=== PATIENT | female | born 1935 | race Caucasian/White ===

== ENCOUNTER → 2017-01-09 | Outpatient (CLI) | payer MEDICARE, BC | LOC: MW.CHIM 08:00 | PROVIDERS: ATTEND Internal Medicine | DX: E11.9 Type 2 diabetes mellitus without complications (principal); I10 Essential (primary) hypertension; E03.9 Hypothyroidism, unspecified; K21.9 Gastro-esophageal reflux disease without esophagitis | CPT/HCPCS: 99215 ==

== ENCOUNTER → 2017-02-25 | Outpatient (CLI) | payer MEDICARE, BC | LOC: MW.CHIM 08:49 | PROVIDERS: ATTEND Internal Medicine | DX: M10.9 Gout, unspecified (principal) | CPT/HCPCS: 36415; 84550 ==

== ENCOUNTER → 2017-02-26 | Outpatient (CLI) | payer MEDICARE, BC | LOC: MW.CHIM 08:00 | PROVIDERS: ATTEND Internal Medicine | DX: M10.9 Gout, unspecified (principal) | CPT/HCPCS: G0463 ==

== ENCOUNTER 2020-11-19 11:03 | Emergency (ER) | payer MEDICARE, BC ==
--- NOTE | 2020-11-19 11:37 | EDM.PDOC ---
ED HPI GENERAL MEDICAL PROBLEM - General Chief Complaint: Lower Extremity Injury/Pain Stated Complaint: RT LEG PAIN Time Seen by Provider: 11/19/20 11:04 Source of Information: Reports: Patient History Limitations: Reports: No Limitations - History of Present Illness INITIAL COMMENTS - FREE TEXT/NARRATIVE: HISTORY AND PHYSICAL: History of present illness: Patient is an 84-year-old female who presents emergency room today with concern of right posterior thigh pain that has been ongoing for 2 weeks. Patient states that some days are better than others and states that she has a throbbing sensation in the back of her posterior right thigh. Patient states that it is similar to a "charley horse "sensation and states that it is worse at night than during the day. Patient states that she came to the emergency room today for evaluation because family members were concerned that she was ignoring a blood clot. Patient states that she has not had any swelling, redness, or can feel or notice anything of the extremity. Patient denies any trauma, injury, or falls. Patient denies any other symptoms or concerns. Patient denies fever, chills, chest pain, shortness of breath, or cough. Denies headache, neck stiff ness, change in vision, syncope, or near syncope. Denies nausea, vomiting, abdominal pain, diarrhea, constipation, or dysuria. Has not noted any blood in urine or stool. Patient has been eating and drinking appropriately. Review of systems: As per history of present illness and below otherwise all systems reviewed and negative. Past medical history: As per history of present illness and as reviewed below otherwise noncontributory. Surgical history: As per history of present illness and as reviewed below otherwise noncontributory. Social history: See social history for further information Family history: As per history of present illness and as reviewed below otherwise noncontributory. Physical exam: General: Patient is alert, oriented, and in no acute distress. Patient sitting comfortably on exam table. Vitals stable and reviewed by me. HEENT: Atraumatic, normocephalic, pupils equal and reactive bilaterally, negative for conjunctival pallor or scleral icterus, mucous membranes moist, TMs normal bilaterally, throat clear, neck supple, nontender, trachea midline. No drooling or trismus noted. No meningeal signs. No hot potato voice noted. Lungs: Clear to auscultation, breath sounds equal bilaterally, chest nontender. Heart: S1S2, regular rate and rhythm without overt murmur Abdomen: Soft, nondistended, nontender. Negative for masses or hepatosplenomegaly. Negative for costovertebral tenderness. Pelvis: Stable nontender. Genitourinary: Deferred. Rectal: Deferred. Skin: Intact, warm, dry. No lesions or rashes noted. Extremities: Patient was able to ambulate into the ED today without difficulty. No obvious deformity of bilateral lower extremities. No erythema, warmth, rashes, masses, or lesions noted of bilateral lower extremities. Dorsalis pedis and posterior tibial pulses are grossly intact bilaterally with capillary refill less than 2 seconds. Patient has full range of motion of bilateral lower extremities without pain or difficulty. Patient does have some generalized mild discomfort to palpation of the posterior thigh / hamstring area and posterior knee without deformity, erythema, warmth, rashes, lesions, or masses of this area. Otherwise, atraumatic, negative for cords or calf pain. Neurovascular unremarkable. Neuro: Awake, alert, oriented. Cranial nerves II through XII unremarkable. Cerebellum unremarkable. Motor and sensory unremarkable throughout. Exam nonfocal. Notes: Signs and symptoms that would prompt return to the ED thoroughly discussed with patient. Discussed the importance for follow up with a primary care provider. Voices understanding and is agreeable to plan of care. Denies any further questions or concerns at this time. Diagnostics: Femur XR Rt, Bilateral venous doppler US Therapeutics: None Prescription: None Impression: Right leg pain, unspecified Bakers cyst, right lower extremity Plan: 1. Tylenol as directed for pain management or discomfort. 2. Follow up with the primary care provider as discussed. Return to the ED as needed and as discussed. Definitive disposition and diagnosis as appropriate pending reevaluation and review of above. Right thigh Pain Score (Numeric/FACES): 7 - Related Data Allergies Allergy/AdvReac Type Severity Reaction Status Date / Time Penicillins Allergy throat Verified 11/19/20 11:19 swellingh Social & Family History - Family History Family Medical History: No Pertinent Family History - Tobacco Use Tobacco Use Status *Q: Never Tobacco User - Caffeine Use Caffeine Use: Reports: None Review of Systems - Review of Systems Review Of Systems: Comprehensive ROS is negative, except as noted in HPI. ED EXAM, GENERAL - Physical Exam Exam: See Below (see dictation) Course - Vital Signs Last Recorded V/S: Last Vital Signs Temp 97.1 F 11/19/20 13:03 Pulse 70 11/19/20 13:03 Resp 18 11/19/20 13:03 BP 169/82 H 11/19/20 13:03 Pulse Ox 94 L 11/19/20 13:03 Departure - Departure Time of Disposition: 12:49 Disposition: Home, Self-Care 01 Clinical Impression: Right leg pain Montero's cyst of knee Qualifiers: Laterality: right Qualified Code(s): M71.21 - Synovial cyst of popliteal space [Montero], right knee - Discharge Information Instructions: Ankle Sprain, [id number]-[id number], Tibial Fracture, Adult, [id number] Referrals: Mally Wilson MD [Primary Care Provider] - Forms: ED Department Discharge Additional Instructions: The following information is given to patients seen in the emergency department who are being discharged to home. This information is to outline your options for follow-up care. We provide all patients seen in our emergency department with a follow-up referral. The need for follow-up, as well as the timing and circumstances, are variable depending upon the specifics of your emergency department visit. If you don't have a primary care physician on staff, we will provide you with a referral. We always advise you to contact your personal physician following an emergency department visit to inform them of the circumstance of the visit and for follow-up with them and/or the need for any referrals to a consulting specialist. The emergency department will also refer you to a specialist when appropriate. This referral assures that you have the opportunity for follow-up care with a specialist. All of these measure are taken in an effort to provide you with optimal care, which includes your follow-up. Under all circumstances we always encourage you to contact your private physician who remains a resource for coordinating your care. When calling for follow-up care, please make the office aware that this follow-up is from your recent emergency room visit. If for any reason you are refused follow-up, please contact the [facility] Emergency Department at and asked to speak to the emergency department charge nurse. [facility] [address] [place] [id number] [facility] [address] [place] [address] 1. Tylenol as directed for pain management or discomfort. 2. Follow up with the primary care provider as discussed. Return to the ED as needed and as discussed. Sepsis Event Note (ED) - Evaluation Sepsis Screening Result: No Definite Risk - Focused Exam Vital Signs: Vital Signs Temp Pulse Resp BP Pulse Ox 11/19/20 13:03 97.1 F 70 18 169/82 H 94 L 11/19/20 11:20 98.0 F 69 18 174/69 H 97
--- NOTE | 2020-11-19 12:14 | CR ---
HISTORY: Posterior thigh pain. COMPARISON: None available. FINDINGS: AP and lateral views of the right femur were obtained. There is no sign of fracture, dislocation, or joint effusion. The soft tissues are normal in appearance without sign of radio-opaque foreign body. There is mild primary osteoarthritis of the hip, with mild joint space narrowing and mild marginal osteophyte formation. There is no sign of fracture or dislocation. There is tricompartmental primary osteoarthritis of the knee, with moderate involvement of the medial joint and patellofemoral joint compartments, and mild involvement of the lateral joint compartment. Medially, there is moderate joint space narrowing and mild marginal osteophyte formation. Laterally, the joint space is preserved, but there is moderate marginal osteophyte formation and mild sclerosis of the articular surfaces. The patellofemoral joint compartment appears to be mildly narrowed and there is moderate superior patellar marginal osteophyte formation. There is no sign of a suprapatellar knee joint effusion. IMPRESSION: No sign of acute osseous injury. Tricompartmental primary osteoarthritis of the knee with moderate involvement medially and of the patellofemoral joint compartment. Mild involvement laterally. Mild primary osteoarthritis of the right hip. Dictated by Can Ha MD @ Nov 19 2020 12:10PM Signed by Dr. Can Ha @ Nov 19 2020 12:13PM
--- NOTE | 2020-11-19 12:40 | US ---
INDICATION: Right posterior thigh pain for several weeks. COMPARISON: None available FINDINGS: Ultrasound of the venous drainage of both lower extremities shows no evidence of deep venous thrombosis. There is normal antegrade flow from the posterior tibial and popliteal veins superiorly through the common femoral vein in both legs. There is normal augmentation and compressibility of these veins. There is a small Montero cyst in the right popliteal fossa measuring 2.0 x 1.1 x 3.9 centimeters. IMPRESSION: No evidence of deep venous thrombosis on ultrasound examination of both lower extremities. Small right Montero`s cyst. Dictated by Can Ha MD @ Nov 19 2020 12:29PM Signed by Dr. Can Ha @ Nov 19 2020 12:37PM
== END 2020-11-19 13:04 | disposition home or self-care (01) ==
LOC: MW.ED 11:03
DX: M71.21 Synovial cyst of popliteal space [Baker], right knee (principal); Z88.0 Allergy status to penicillin
CPT/HCPCS: 73552-26-LT; 73552-RT; 93970; 93970-26; 99283; 99284-25

== ENCOUNTER 2021-12-24 16:03 | Emergency (ER) | payer MEDICARE, BC ==
[2021-12-24 17:31] LABS: CARBON DIOXIDE,CO2 23.4 mmol/L (21.0-32.0); ESTIMATED GFR 30.6 ml/min; POTASSIUM,K 3.3 mmol/L (3.5-5.1)
[2021-12-24] MEDS ORDERED: Potassium Chloride 20 MEQ Tab.ER PO ONE (17:45)
== END 2021-12-24 19:01 | disposition home or self-care (01) ==
LOC: MW.ED 16:03
DX: I95.1 Orthostatic hypotension (principal); E87.6 Hypokalemia; I11.0 Hypertensive heart disease with heart failure; I50.9 Heart failure, unspecified; Z88.0 Allergy status to penicillin
CPT/HCPCS: 36415; 80053; 85025; 93005; 99284; A9270; 93010

== ENCOUNTER 2022-07-16 09:00 | Emergency (ER) | payer MEDICARE, BC | END 2022-07-16 16:19 | disposition home or self-care (01) | LOC: MW.ED 09:00 | DX: I63.9 Cerebral infarction, unspecified (principal) | CPT/HCPCS: 70450; 99285 ==

== ENCOUNTER 2022-09-30 13:01 | Emergency (ER) | payer MEDICARE, BC ==
[2022-09-30] MEDS ORDERED: Sodium Chloride 0.9% 250 ML IV SCH (14:15)
[2022-09-30 14:56] LABS: CARBON DIOXIDE,CO2 23.3 mmol/L (21.0-32.0); POTASSIUM,K 3.4 mmol/L (3.5-5.1)
== END 2022-09-30 15:44 | disposition home or self-care (01) ==
LOC: MW.ED 13:01
DX: E86.1 Hypovolemia (principal); Z88.0 Allergy status to penicillin
CPT/HCPCS: 36415; 80053; 85025; 96360; 99284; J7050

== ENCOUNTER 2022-10-05 02:12 | Observation (INO) | payer MEDICARE, BC ==
[2022-10-05 03:01] LABS: BLOOD UREA NITROGEN,BUN 25 mg/dL (7.0-18.0); CARBON DIOXIDE,CO2 25.9 mmol/L (21.0-32.0); CHLORIDE,CL 99 mmol/L (98-107); GLUCOSE RANDOM 137 mg/dL (74-106); POTASSIUM,K 3.5 mmol/L (3.5-5.1); SODIUM,NA 136 mmol/L (136-145)
[2022-10-05 03:02] LABS: ESTIMATED GFR 44 mL/min (>60)
[2022-10-05 03:09] LABS: CORONAVIRUS COVID-19 NAA NEGATIVE (NEGATIVE); INFLUENZA A NAA NEGATIVE (NEGATIVE); INFLUENZA B NAA NEGATIVE (NEGATIVE)
[2022-10-05] MEDS ORDERED: Glucagon,Human Recombinant 1 MG Vial IM PRN (06:01)
[2022-10-05] MEDS ORDERED: 50% Dextrose in Water 50 ML Syringe IVPUSH PRN (06:01)
[2022-10-05] MEDS: Insulin Aspart 100 Units/ML 3 ML Pen SUBCUT SCH ×3 (07:33→18:05)
[2022-10-05] MEDS ORDERED: Magnesium Sulfate/Water 2 GM/50 ML Premix Bag IV ONE (11:37)
[2022-10-05] MEDS ORDERED: Magnesium Sulfate/Water 2 GM in Premix Bag 1 BAG IV ONE (11:45)
[2022-10-05] MEDS ORDERED: Sodium Chloride 0.9% 500 ML IV SCH (14:30)
[2022-10-05] MEDS: Levothyroxine 125 MCG Tab PO SCH (14:52)
[2022-10-05] MEDS: Lactulose Soln 10 GM/15 ML 15 ML UD Cup PO SCH (17:34)
[2022-10-06] MEDS: Lactulose Soln 10 GM/15 ML 15 ML UD Cup PO SCH ×2 (00:10→06:48)
[2022-10-06 06:20] LABS: CARBON DIOXIDE,CO2 26.3 mmol/L (21.0-32.0); POTASSIUM,K 2.8 mmol/L (3.5-5.1)
[2022-10-06] MEDS: Levothyroxine 125 MCG Tab PO SCH (06:48)
[2022-10-06] MEDS: Insulin Aspart 100 Units/ML 3 ML Pen SUBCUT SCH ×2 (07:27→11:23)
[2022-10-06] MEDS ORDERED: Magnesium Oxide 400 MG Tab PO ONE (08:52)
[2022-10-06] MEDS: Potassium Chloride 20 MEQ Tab.ER PO SCH ×2 (09:28→12:58)
[2022-10-06] MEDS ORDERED: Lactulose Soln 10 GM/15 ML 15 ML UD Cup PO SCH (12:00)
[2022-10-06 12:28] LABS: CARBON DIOXIDE,CO2 28.2 mmol/L (21.0-32.0); POTASSIUM,K 3.6 mmol/L (3.5-5.1)
== END 2022-10-06 14:10 | disposition home or self-care (01) ==
LOC: MW.ED 02:12 → MW.MS 04:29
PROVIDERS: ADMIT Internal Medicine; ATTEND Internal Medicine
DX: E72.20 Disorder of urea cycle metabolism, unspecified (principal); R42 Dizziness and giddiness; R53.1 Weakness; K74.60 Unspecified cirrhosis of liver; R41.0 Disorientation, unspecified; E03.9 Hypothyroidism, unspecified; E11.9 Type 2 diabetes mellitus without complications; I11.0 Hypertensive heart disease with heart failure; E78.00 Pure hypercholesterolemia, unspecified; Z79.899 Other long term (current) drug therapy; Z79.82 Long term (current) use of aspirin; Z79.890 Hormone replacement therapy; Z79.84 Long term (current) use of oral hypoglycemic drugs; Z88.0 Allergy status to penicillin; Z20.822 Contact with and (suspected) exposure to COVID-19
CPT/HCPCS: 0240U; 36415; 70450; 71045; 76705; 80048; 80053; 80305; 81001; 82140; 82607; 82746; 82947; 83735; 83880; 84100; 84443; 84484; 85025; 85610; 86140; 87086; 93005; 99285; A9270; J3475; J7030; 96361; 96374; G0378

== ENCOUNTER 2022-12-10 11:44 | Emergency (ER) | payer MEDICARE, BC ==
[2022-12-10] MEDS ORDERED: Sodium Chloride 0.9% 10 ML Syringe FLUSH PRN (12:22)
[2022-12-10] MEDS ORDERED: Sodium Chloride 0.9% 20 ML SDV IV PRN (12:22)
[2022-12-10] MEDS ORDERED: Sodium Chloride 0.9% 2.5 ML Syringe FLUSH PRN (12:22)
[2022-12-10] MEDS ORDERED: Lactated Ringers 1,000 ML IV SCH (12:30)
[2022-12-10 13:10] LABS: CARBON DIOXIDE,CO2 15.4 mmol/L (21.0-32.0); POTASSIUM,K 6.4 mmol/L (3.5-5.1)
[2022-12-10] MEDS ORDERED: 50% Dextrose in Water 50 ML Syringe IVPUSH PRN (13:35)
[2022-12-10] MEDS ORDERED: Glucagon,Human Recombinant 1 MG Vial IM PRN (13:35)
[2022-12-10] MEDS ORDERED: Insulin Regular, Human 100 Units/ML 10 ML Vial IVPUSH ONE (13:35)
[2022-12-10] MEDS ORDERED: Albuterol 0.083% 2.5 MG/3 ML Neb Soln NEB ONE (13:36)
[2022-12-10 15:23] LABS: BILIRUBIN INDIRECT 0.8; CARBON DIOXIDE,CO2 16.7 mmol/L (21.0-32.0); POTASSIUM,K 5.5 mmol/L (3.5-5.1)
== END 2022-12-10 15:57 ==
LOC: MW.ED 11:44
DX: K92.2 Gastrointestinal hemorrhage, unspecified (principal); I11.0 Hypertensive heart disease with heart failure; I50.9 Heart failure, unspecified; E78.00 Pure hypercholesterolemia, unspecified; E11.9 Type 2 diabetes mellitus without complications; E03.9 Hypothyroidism, unspecified; Z88.0 Allergy status to penicillin; Z79.82 Long term (current) use of aspirin; Z79.899 Other long term (current) drug therapy; Z79.84 Long term (current) use of oral hypoglycemic drugs
CPT/HCPCS: 36415; 36430; 80053; 82140; 82247; 82248; 82803; 83605; 83615; 83690; 83735; 84484; 85025; 85045; 85384; 85610; 85730; 86850; 86900; 86901; 86920; 87040; 96360; 99291; 99292; J1815; J3490; J7120; P9016; J7620-GY

== ENCOUNTER 2023-04-01 09:20 | Observation (INO) | payer MEDICARE, BC ==
[2023-04-01] MEDS ORDERED: Sodium Chloride 0.9% 2.5 ML Syringe FLUSH PRN (09:25)
[2023-04-01] MEDS ORDERED: Sodium Chloride 0.9% 10 ML Syringe FLUSH PRN (09:25)
[2023-04-01 09:34] LABS: BASE EXCESS VENOUS 2.7 (-2.0-3.0); PH,VENOUS 7.47 (7.31-7.41)
[2023-04-01 09:35] LABS: BASOPHILS PERCENT AUTO 0.4 % (0.0-1.5); HEMATOCRIT 30.4 % (36.0-46.0); HEMOGLOBIN 10.1 g/dL (12.0-16.0); LYMPHOCYTES ABSOLUTE AUTO 0.6 K/uL (0.6-2.4); LYMPHOCYTES PERCENT AUTO 25.9 % (16.0-40.0); MEAN CORPUSCULAR HEMOGLOBIN 33.1 pg (27.0-32.0); MEAN CORPUSCULAR HGB CONC 33.2 g/dL (31.0-37.0); MEAN CORPUSCULAR VOLUME 99.7 fL (80.0-98.0); MONOCYTES ABSOLUTE AUTO 0.2 K/uL (0.0-0.8); MONOCYTES PERCENT AUTO 8.9 % (0.0-15.0); NEUTROPHILS ABSOLUTE AUTO 1.5 K/uL (1.4-5.7); NEUTROPHILS PERCENT AUTO 64.8 % (48.0-80.0); NRBC ABSOLUTE 0 K/uL; PLATELET COUNT,PLT 54 K/uL (150-400); RED BLOOD CELL COUNT 3.05 M/uL (4.30-5.90); WHITE BLOOD CELL COUNT,WBC 2.24 K/uL (4.0-11.0)
[2023-04-01 09:51] LABS: INR 1.1 (0.86-1.11); PTT,PARTIAL THROMBOPLSTIN TIME 25.9 SEC (23.9-30.7)
[2023-04-01] MEDS ORDERED: Cefepime 2 GM in Sodium Chloride 0.9% 50 ML IV ONE (10:10)
[2023-04-01] MEDS ORDERED: Lactated Ringers 1,000 ML IV ONE (10:10)
[2023-04-01 10:11] LABS: A/G RATIO 0.7 (0.9-1.6); ACETAMINOPHEN <2.0 ug/mL; ALANINE AMINOTRANSFERASE,ALT 32 IU/L (14-63); ALBUMIN 2.6 g/dL (3.4-5.0); ALKALINE PHOSPHATASE 193 U/L (46-116); ASPARTATE AMNIOTRANSFERASE,AST 49 IU/L (15-37); BILIRUBIN TOTAL 0.9 mg/dL (0.2-1.0); BLOOD UREA NITROGEN,BUN 25 mg/dL (7.0-18.0); CALCIUM 9.2 mg/dL (8.5-10.1); CARBON DIOXIDE,CO2 25.8 mmol/L (21.0-32.0); CHLORIDE,CL 107 mmol/L (98-107); CREATININE 1.5 mg/dL (0.6-1.0); GLUCOSE RANDOM 137 mg/dL (74-106); LIPASE 292 U/L (73-393); MAGNESIUM 1.6 mg/dL (1.8-2.4); POTASSIUM,K 4.5 mmol/L (3.5-5.1); PROTEIN TOTAL,TP 6.1 g/dL (6.4-8.2); SALICYLATE <0.2 mg/dL (0.0-20.0); SODIUM,NA 140 mmol/L (136-145); TSH ULTRASENSITIVE 0.37 uIU/mL (0.36-3.74)
[2023-04-01 10:16] LABS: ESTIMATED GFR 34 mL/min (>60); ETHANOL BLOOD MEDICAL < 3.0 mg/dL
[2023-04-01] MEDS ORDERED: Magnesium Sulfate (4.06 MEQ/ML) 5 GM/10 ML SDV IV STA (10:18)
[2023-04-01] MEDS ORDERED: Sodium Chloride 0.9% 1,000 ML IV ONE (10:18)
[2023-04-01 10:30] LABS: APPEARANCE,URINE CLEAR; BILIRUBIN,URINE NEGATIVE (NEGATIVE); COLOR,URINE YELLOW; GLUCOSE,URINE NEGATIVE (NEGATIVE); KETONES,URINE NEGATIVE (NEGATIVE); LEUKOCYTE ESTERASE,URINE TRACE (NEGATIVE); NITRITE,URINE NEGATIVE (NEGATIVE); OCCULT BLOOD,URINE NEGATIVE (NEGATIVE); PH,URINE 6.5 (5.0-8.0); PROTEIN,URINE NEGATIVE (NEGATIVE); UROBILINOGEN,URINE 0.2 EU/dL (<2.0)
[2023-04-01] MEDS ORDERED: fentaNYL 50 MCG/ML SDV IVPUSH ONE (10:37)
[2023-04-01] MEDS ORDERED: Naloxone 0.4 MG/ML SDV IVPUSH PRN (10:37)
[2023-04-01] MEDS ORDERED: Ondansetron 4 MG/2 ML SDV IVPUSH ONE (10:37)
[2023-04-01 10:38] LABS: AMPHETAMINES SCREEN, URINE NEGATIVE (CUTOFF=500); BARBITURATE SCREEN,URINE NEGATIVE (CUTOFF=200); BENZODIAZEPINES SCREEN,URINE NEGATIVE (CUTOFF=150); BUPRENORPHINE SCREEN,URINE NEGATIVE (CUTOFF=10); METHADONE SCREEN, URINE NEGATIVE (CUTOFF=200); METHAMPHETAMINES SCREEN, URINE NEGATIVE (CUTOFF=500); OXYCODONE SCREEN,URINE NEGATIVE (CUT0FF=100); PCP SCREEN,URINE NEGATIVE (CUTOFF=25); PROPOXYPHENE SCREEN,URINE NEGATIVE (CUTOFF=300); THC SCREEN,URINE 20 NG/ML NEGATIVE (CUTOFF=50)
[2023-04-01 10:42] LABS: BACTERIA,URINE FEW (NEGATIVE); EPITHELIAL CELLS,URINE FEW (NONE-FEW); HYALINE CASTS,URINE OCCASIONAL (0-2/LPF); RBC,URINE 0-2 (0-2/HPF); RENAL EPITHELIAL CELLS,URINE OCCASIONAL; SQUAMOUS EPITHELIAL CELLS,UR FEW; WBC,URINE 0-5 (0-5/HPF)
[2023-04-01] MEDS ORDERED: Magnesium Sulfate/Water 2 GM in Premix Bag 1 BAG IV ONE (12:00)
[2023-04-01] MEDS ORDERED: 50% Dextrose in Water 50 ML Syringe IVPUSH PRN (13:44)
[2023-04-01] MEDS ORDERED: Glucagon,Human Recombinant 1 MG Vial IM PRN (13:44)
[2023-04-01] MEDS: Lactulose Soln 10 GM/15 ML 15 ML UD Cup PO SCH ×2 (14:21→21:20)
[2023-04-01] MEDS: Pantoprazole 40 MG in Sodium Chloride 0.9% 10 ML IVPUSH SCH (14:26)
[2023-04-01] MEDS: Insulin Aspart 100 Units/ML 3 ML Pen SUBCUT SCH (17:03)
[2023-04-01] MEDS: Lactulose Soln 10 GM/15 ML 15 ML UD Cup PO PRN ×2 (21:20→23:26)
[2023-04-01] MEDS ORDERED: Cefepime 2 GM Vial IVPUSH ONE (22:00)
[2023-04-02 06:32] LABS: BASOPHILS PERCENT AUTO 0.4 % (0.0-1.5); HEMATOCRIT 28.7 % (36.0-46.0); HEMOGLOBIN 9.2 g/dL (12.0-16.0); LYMPHOCYTES ABSOLUTE AUTO 0.7 K/uL (0.6-2.4); MEAN CORPUSCULAR HEMOGLOBIN 32.2 pg (27.0-32.0); MEAN CORPUSCULAR HGB CONC 32.1 g/dL (31.0-37.0); MEAN CORPUSCULAR VOLUME 100.3 fL (80.0-98.0); MONOCYTES ABSOLUTE AUTO 0.3 K/uL (0.0-0.8); MONOCYTES PERCENT AUTO 11.4 % (0.0-15.0); NEUTROPHILS ABSOLUTE AUTO 1.7 K/uL (1.4-5.7); NEUTROPHILS PERCENT AUTO 62.2 % (48.0-80.0); NRBC ABSOLUTE 0 K/uL; PLATELET COUNT,PLT 64 K/uL (150-400); RED BLOOD CELL COUNT 2.86 M/uL (4.30-5.90); WHITE BLOOD CELL COUNT,WBC 2.73 K/uL (4.0-11.0)
[2023-04-02] MEDS: Insulin Aspart 100 Units/ML 3 ML Pen SUBCUT SCH ×2 (06:53→11:48)
[2023-04-02 07:07] LABS: A/G RATIO 0.7 (0.9-1.6); ALBUMIN 2.3 g/dL (3.4-5.0); BILIRUBIN TOTAL 1.3 mg/dL (0.2-1.0); CALCIUM 9.5 mg/dL (8.5-10.1); CARBON DIOXIDE,CO2 23.9 mmol/L (21.0-32.0); CREATININE 1.4 mg/dL (0.6-1.0); MAGNESIUM 1.6 mg/dL (1.8-2.4); PROTEIN TOTAL,TP 5.8 g/dL (6.4-8.2)
[2023-04-02] MEDS ORDERED: Magnesium Sulfate/Water 2 GM in Premix Bag 1 BAG IV ONE (07:37)
[2023-04-02] MEDS: Lactulose Soln 10 GM/15 ML 15 ML UD Cup PO SCH (09:04)
[2023-04-02] MEDS: Pantoprazole 40 MG in Sodium Chloride 0.9% 10 ML IVPUSH SCH (14:48)
== END 2023-04-02 13:56 | disposition home or self-care (01) ==
LOC: MW.ED 09:20 → MW.MS 13:27 → UNDOADMOB 13:48
PROVIDERS: ADMIT Internal Medicine; ATTEND Internal Medicine
DX: K76.82 Hepatic encephalopathy (principal); N39.0 Urinary tract infection, site not specified; E83.42 Hypomagnesemia; N17.9 Acute kidney failure, unspecified; E72.20 Disorder of urea cycle metabolism, unspecified; E11.9 Type 2 diabetes mellitus without complications; I11.0 Hypertensive heart disease with heart failure; I50.9 Heart failure, unspecified; D69.6 Thrombocytopenia, unspecified; E78.00 Pure hypercholesterolemia, unspecified; K74.60 Unspecified cirrhosis of liver; E03.9 Hypothyroidism, unspecified; Z20.822 Contact with and (suspected) exposure to COVID-19; Z88.0 Allergy status to penicillin; Z79.82 Long term (current) use of aspirin; Z79.84 Long term (current) use of oral hypoglycemic drugs; Z79.890 Hormone replacement therapy; Z79.899 Other long term (current) drug therapy
CPT/HCPCS: 36415; 70450; 71045; 74176; 80053; 80143; 80179; 80305; 80307; 81001; 82140; 82803; 82947; 83605; 83690; 83735; 84443; 84484; 85025; 85610; 85730; 87040; 93005; 96365; 96366; 96367; 96375; 96376; 99285; A9270; C9113; G0378; J0692; J1815; J2405; J3010; J3475; J3490; J7030; U0002

== ENCOUNTER 2023-04-15 11:06 | Emergency (ER) | payer MEDICARE, BC ==
[2023-04-15] MEDS ORDERED: Sodium Chloride 0.9% 2.5 ML Syringe FLUSH PRN (11:17)
[2023-04-15] MEDS ORDERED: Sodium Chloride 0.9% 10 ML Syringe FLUSH PRN (11:17)
[2023-04-15 11:55] LABS: BASOPHILS PERCENT AUTO 0.3 % (0.0-1.5); EOSINOPHILS PERCENT AUTO 0.6 % (0.0-7.0); HEMATOCRIT 31.9 % (36.0-46.0); HEMOGLOBIN 10.4 g/dL (12.0-16.0); LYMPHOCYTES ABSOLUTE AUTO 0.7 K/uL (0.6-2.4); LYMPHOCYTES PERCENT AUTO 22.6 % (16.0-40.0); MEAN CORPUSCULAR HGB CONC 32.6 g/dL (31.0-37.0); MEAN CORPUSCULAR VOLUME 101.3 fL (80.0-98.0); MONOCYTES ABSOLUTE AUTO 0.3 K/uL (0.0-0.8); MONOCYTES PERCENT AUTO 8.4 % (0.0-15.0); NEUTROPHILS ABSOLUTE AUTO 2.2 K/uL (1.4-5.7); NEUTROPHILS PERCENT AUTO 68.1 % (48.0-80.0); NRBC ABSOLUTE 0 K/uL; PLATELET COUNT,PLT 78 K/uL (150-400); RED BLOOD CELL COUNT 3.15 M/uL (4.30-5.90); WHITE BLOOD CELL COUNT,WBC 3.23 K/uL (4.0-11.0)
[2023-04-15 12:06] LABS: INR 1.14 (0.86-1.11)
[2023-04-15 12:26] LABS: A/G RATIO 0.8 (0.9-1.6); ALBUMIN 2.7 g/dL (3.4-5.0); BILIRUBIN TOTAL 1.3 mg/dL (0.2-1.0); CALCIUM 9.9 mg/dL (8.5-10.1); CARBON DIOXIDE,CO2 23.8 mmol/L (21.0-32.0); CREATININE 1.1 mg/dL (0.6-1.0); EST CRCL DRUG DOSING (CG) 33.03 mL/min; POTASSIUM,K 4.7 mmol/L (3.5-5.1); PROTEIN TOTAL,TP 6.2 g/dL (6.4-8.2)
[2023-04-15 12:36] LABS: MAGNESIUM 1.5 mg/dL (1.8-2.4); TSH ULTRASENSITIVE 2.19 uIU/mL (0.36-3.74)
[2023-04-15 12:41] LABS: APPEARANCE,URINE CLEAR; BILIRUBIN,URINE NEGATIVE (NEGATIVE); COLOR,URINE YELLOW; GLUCOSE,URINE NEGATIVE (NEGATIVE); KETONES,URINE NEGATIVE (NEGATIVE); LEUKOCYTE ESTERASE,URINE NEGATIVE (NEGATIVE); NITRITE,URINE NEGATIVE (NEGATIVE); OCCULT BLOOD,URINE NEGATIVE (NEGATIVE); PROTEIN,URINE NEGATIVE (NEGATIVE); UROBILINOGEN,URINE 0.2 EU/dL (<2.0)
[2023-04-15] MEDS ORDERED: Magnesium Sulfate/Water 4 GM in Premix Bag 1 BAG IV STA (12:44)
[2023-04-15] MEDS ORDERED: Magnesium Sulfate/Water 100 ML ONE (13:28)
== END 2023-04-15 15:42 | disposition home or self-care (01) ==
LOC: MW.ED 11:06
DX: I49.3 Ventricular premature depolarization (principal); E83.42 Hypomagnesemia; Z88.0 Allergy status to penicillin; I11.0 Hypertensive heart disease with heart failure; I50.9 Heart failure, unspecified; E78.00 Pure hypercholesterolemia, unspecified; E11.9 Type 2 diabetes mellitus without complications; E03.9 Hypothyroidism, unspecified; Z79.82 Long term (current) use of aspirin; Z79.84 Long term (current) use of oral hypoglycemic drugs; Z79.899 Other long term (current) drug therapy
CPT/HCPCS: 36415; 80053; 81003; 82140; 83735; 83880; 84443; 84484; 85025; 85610; 93005; 96365; 96366; 99284; J3475; J3490

== ENCOUNTER 2023-06-24 23:29 | Inpatient (IN) | payer MEDICARE, BC ==
[2023-06-25 00:10] LABS: EOSINOPHILS PERCENT AUTO 1.2 % (0.0-7.0); HEMATOCRIT 34.2 % (36.0-46.0); HEMOGLOBIN 11.5 g/dL (12.0-16.0); LYMPHOCYTES ABSOLUTE AUTO 0.6 K/uL (0.6-2.4); LYMPHOCYTES PERCENT AUTO 18.1 % (16.0-40.0); MEAN CORPUSCULAR HEMOGLOBIN 33.9 pg (27.0-32.0); MEAN CORPUSCULAR HGB CONC 33.6 g/dL (31.0-37.0); MEAN CORPUSCULAR VOLUME 100.9 fL (80.0-98.0); MONOCYTES ABSOLUTE AUTO 0.3 K/uL (0.0-0.8); MONOCYTES PERCENT AUTO 8.9 % (0.0-15.0); NEUTROPHILS ABSOLUTE AUTO 2.3 K/uL (1.4-5.7); NEUTROPHILS PERCENT AUTO 71.8 % (48.0-80.0); RED BLOOD CELL COUNT 3.39 M/uL (4.30-5.90); WHITE BLOOD CELL COUNT,WBC 3.26 K/uL (4.0-11.0)
[2023-06-25 00:10] LABS: APPEARANCE,URINE SLT CLOUDY; BILIRUBIN,URINE NEGATIVE (NEGATIVE); COLOR,URINE YELLOW; GLUCOSE,URINE NEGATIVE (NEGATIVE); KETONES,URINE NEGATIVE (NEGATIVE); LEUKOCYTE ESTERASE,URINE LARGE (NEGATIVE); NITRITE,URINE NEGATIVE (NEGATIVE); OCCULT BLOOD,URINE SMALL (NEGATIVE); PROTEIN,URINE NEGATIVE (NEGATIVE); UROBILINOGEN,URINE 0.2 EU/dL (<2.0)
[2023-06-25 00:18] LABS: BACTERIA,URINE 4+ (NEGATIVE); EPITHELIAL CELLS,URINE FEW (NONE-FEW); MUCUS,URINE LIGHT (NONE-MOD)
[2023-06-25 00:24] LABS: PLATELET COUNT,PLT 73 K/uL (150-400)
[2023-06-25] MEDS ORDERED: cefTRIAXone 1 GM in Sodium Chloride 0.9% 50 ML IV ONE (00:30)
[2023-06-25 00:31] LABS: INR 1.12 (0.86-1.11); PTT,PARTIAL THROMBOPLSTIN TIME 28.4 SEC (23.9-30.7)
[2023-06-25] MEDS ORDERED: Lactulose Soln 10 GM/15 ML 15 ML UD Cup PO ONE (00:40)
[2023-06-25 00:48] LABS: A/G RATIO 0.8 (0.9-1.6); ALBUMIN 3.3 g/dL (3.4-5.0); BILIRUBIN TOTAL 1.3 mg/dL (0.2-1.0); CALCIUM 9.8 mg/dL (8.5-10.1); CARBON DIOXIDE,CO2 22.6 mmol/L (21.0-32.0); CREATININE 1.8 mg/dL (0.6-1.0); EST CRCL DRUG DOSING (CG) 24.26 mL/min; MAGNESIUM 1.7 mg/dL (1.8-2.4); POTASSIUM,K 4.8 mmol/L (3.5-5.1); PROTEIN TOTAL,TP 7.4 g/dL (6.4-8.2); TSH ULTRASENSITIVE 1.2 uIU/mL (0.36-3.74)
[2023-06-25] MEDS ORDERED: Sodium Chloride 0.9% 1,000 ML IV ONE (00:55)
[2023-06-25] MEDS ORDERED: Magnesium Sulfate (4.06 MEQ/ML) 5 GM/10 ML SDV IV STA (02:58)
[2023-06-25] MEDS ORDERED: Sodium Chloride 0.9% 1,000 ML IV SCH (03:00)
[2023-06-25] MEDS ORDERED: Magnesium Sulfate/Water 50 ML IV ONE (03:15)
[2023-06-25] MEDS ORDERED: Albuterol/Ipratropium 3.0-0.5 MG/3 ML Neb Soln NEB PRN (04:31)
[2023-06-25] MEDS ORDERED: Polyethylene Glycol 3350 Powder 17 GM Packet PO PRN (04:31)
[2023-06-25] MEDS ORDERED: Ondansetron 4 MG/2 ML SDV IVPUSH PRN (04:31)
[2023-06-25] MEDS ORDERED: Glucagon,Human Recombinant 1 MG Vial IM PRN (04:50)
[2023-06-25] MEDS ORDERED: 50% Dextrose in Water 50 ML Syringe IVPUSH PRN (04:50)
[2023-06-25 06:01] LABS: BASOPHILS PERCENT AUTO 0.3 % (0.0-1.5); EOSINOPHILS ABSOLUTE AUTO 0.1 K/uL (0.0-0.7); EOSINOPHILS PERCENT AUTO 1.4 % (0.0-7.0); HEMATOCRIT 33.7 % (36.0-46.0); HEMOGLOBIN 10.9 g/dL (12.0-16.0); LYMPHOCYTES ABSOLUTE AUTO 0.8 K/uL (0.6-2.4); LYMPHOCYTES PERCENT AUTO 21.7 % (16.0-40.0); MEAN CORPUSCULAR HEMOGLOBIN 32.2 pg (27.0-32.0); MEAN CORPUSCULAR HGB CONC 32.3 g/dL (31.0-37.0); MEAN CORPUSCULAR VOLUME 99.7 fL (80.0-98.0); MONOCYTES ABSOLUTE AUTO 0.3 K/uL (0.0-0.8); MONOCYTES PERCENT AUTO 9.4 % (0.0-15.0); NEUTROPHILS ABSOLUTE AUTO 2.4 K/uL (1.4-5.7); NEUTROPHILS PERCENT AUTO 67.2 % (48.0-80.0); NRBC ABSOLUTE 0 K/uL; PLATELET COUNT,PLT 74 K/uL (150-400); RED BLOOD CELL COUNT 3.38 M/uL (4.30-5.90); WHITE BLOOD CELL COUNT,WBC 3.51 K/uL (4.0-11.0)
[2023-06-25 06:38] LABS: A/G RATIO 0.9 (0.9-1.6); ALBUMIN 3.2 g/dL (3.4-5.0); BILIRUBIN TOTAL 1.4 mg/dL (0.2-1.0); CALCIUM 9.6 mg/dL (8.5-10.1); CARBON DIOXIDE,CO2 20.8 mmol/L (21.0-32.0); CREATININE 1.6 mg/dL (0.6-1.0); EST CRCL DRUG DOSING (CG) 22.71 mL/min; MAGNESIUM 2.5 mg/dL (1.8-2.4); POTASSIUM,K 4.3 mmol/L (3.5-5.1); PROTEIN TOTAL,TP 6.9 g/dL (6.4-8.2)
[2023-06-25] MEDS: Insulin Aspart 100 Units/ML 3 ML Pen SUBCUT SCH ×3 (08:23→17:23)
[2023-06-25] MEDS: Lactulose Soln 10 GM/15 ML 15 ML UD Cup PO SCH ×2 (09:12→21:33)
[2023-06-25] MEDS ORDERED: BIMATOPROST EYEBOTH SCH (21:00)
[2023-06-25] MEDS ORDERED: Rosuvastatin 10 MG Tab PO SCH (21:00)
[2023-06-25] MEDS ORDERED: [UNRECOGNIZED DRUG - OTHER] EYEBOTH SCH (21:00)
[2023-06-25] MEDS ORDERED: rOPINIRole 1 MG Tab PO SCH (21:00)
[2023-06-25] MEDS ORDERED: Aspirin 81 MG Tab.EC PO SCH (21:00)
[2023-06-25] MEDS ORDERED: Latanoprost 0.005% Ophth Soln 2.5 ML Bottle EYEBOTH SCH (21:00)
[2023-06-25] MEDS: Pantoprazole 40 MG Tab.CR PO SCH (21:29)
[2023-06-25] MEDS: Carvedilol 6.25 MG Tab PO SCH (21:30)
[2023-06-25] MEDS: MAGNESIUM GLYCINATE MAG OXIDE PO SCH (21:46)
[2023-06-26] MEDS ORDERED: cefTRIAXone 1 GM in Sodium Chloride 0.9% 50 ML IV SCH ×2
[2023-06-26 06:10] LABS: BASOPHILS PERCENT AUTO 0.4 % (0.0-1.5); EOSINOPHILS ABSOLUTE AUTO 0.1 K/uL (0.0-0.7); EOSINOPHILS PERCENT AUTO 2.9 % (0.0-7.0); HEMATOCRIT 30.5 % (36.0-46.0); HEMOGLOBIN 9.8 g/dL (12.0-16.0); LYMPHOCYTES ABSOLUTE AUTO 0.9 K/uL (0.6-2.4); LYMPHOCYTES PERCENT AUTO 32.2 % (16.0-40.0); MEAN CORPUSCULAR HEMOGLOBIN 32.3 pg (27.0-32.0); MEAN CORPUSCULAR HGB CONC 32.1 g/dL (31.0-37.0); MEAN CORPUSCULAR VOLUME 100.7 fL (80.0-98.0); MONOCYTES ABSOLUTE AUTO 0.2 K/uL (0.0-0.8); MONOCYTES PERCENT AUTO 8.1 % (0.0-15.0); NEUTROPHILS ABSOLUTE AUTO 1.5 K/uL (1.4-5.7); NEUTROPHILS PERCENT AUTO 56.4 % (48.0-80.0); NRBC ABSOLUTE 0 K/uL; RED BLOOD CELL COUNT 3.03 M/uL (4.30-5.90); WHITE BLOOD CELL COUNT,WBC 2.73 K/uL (4.0-11.0)
[2023-06-26 06:27] LABS: PLATELET COUNT,PLT 84 K/uL (150-400)
[2023-06-26 06:33] LABS: A/G RATIO 0.7 (0.9-1.6); ALBUMIN 2.6 g/dL (3.4-5.0); CALCIUM 9.5 mg/dL (8.5-10.1); CARBON DIOXIDE,CO2 19.8 mmol/L (21.0-32.0); CREATININE 1.6 mg/dL (0.6-1.0); EST CRCL DRUG DOSING (CG) 22.71 mL/min; MAGNESIUM 1.6 mg/dL (1.8-2.4); PHOSPHORUS 3.8 mg/dL (2.6-4.7); POTASSIUM,K 4.4 mmol/L (3.5-5.1); PROTEIN TOTAL,TP 6.1 g/dL (6.4-8.2)
[2023-06-26] MEDS ORDERED: Levothyroxine 125 MCG Tab PO SCH (07:30)
[2023-06-26] MEDS: Insulin Aspart 100 Units/ML 3 ML Pen SUBCUT SCH ×2 (07:40→11:25)
[2023-06-26] MEDS ORDERED: Allopurinol 100 MG Tab PO SCH (09:00)
[2023-06-26] MEDS ORDERED: Chlorthalidone 25 MG Tab PO SCH (09:00)
[2023-06-26] MEDS ORDERED: Spironolactone 25 MG Tab PO SCH (09:00)
[2023-06-26] MEDS ORDERED: Losartan 50 MG Tab PO SCH (09:00)
[2023-06-26] MEDS: MAGNESIUM GLYCINATE MAG OXIDE PO SCH (10:05)
[2023-06-26] MEDS: Pantoprazole 40 MG Tab.CR PO SCH (10:05)
[2023-06-26] MEDS: Lactulose Soln 10 GM/15 ML 15 ML UD Cup PO SCH (10:05)
[2023-06-26] MEDS: Carvedilol 6.25 MG Tab PO SCH (13:10)
== END 2023-06-26 15:45 | disposition home or self-care (01) | DRG 690 ==
LOC: MW.ED 23:29 → MW.MS 06-25 01:03
PROVIDERS: ADMIT Family Medicine; ATTEND Family Medicine
DX: N39.0 Urinary tract infection, site not specified (principal); K76.82 Hepatic encephalopathy; Z20.822 Contact with and (suspected) exposure to COVID-19; E11.9 Type 2 diabetes mellitus without complications; K74.60 Unspecified cirrhosis of liver; I11.0 Hypertensive heart disease with heart failure; I50.9 Heart failure, unspecified; E03.9 Hypothyroidism, unspecified; E78.00 Pure hypercholesterolemia, unspecified; G25.81 Restless legs syndrome; I45.10 Unspecified right bundle-branch block; N28.9 Disorder of kidney and ureter, unspecified; B96.20 Unspecified Escherichia coli [E. coli] as the cause of diseases classified elsewhere; Z88.0 Allergy status to penicillin; K21.9 Gastro-esophageal reflux disease without esophagitis; Z79.82 Long term (current) use of aspirin; Z79.84 Long term (current) use of oral hypoglycemic drugs; Z79.890 Hormone replacement therapy; Z90.49 Acquired absence of other specified parts of digestive tract; Z79.899 Other long term (current) drug therapy
CPT/HCPCS: 36415; 80053; 81001; 82140; 82947; 83735; 84100; 84443; 84484; 85025; 85610; 85730; 87086; 87088; 87186; 93005; 93010; 96365; 97161-GP; 99283; 99285-25; A9270-GY; J0696; J3475; J3490; J7030; U0002

== ENCOUNTER 2023-07-13 03:41 | Inpatient (IN) | payer MEDICARE, BC ==
[2023-07-13 03:52] LABS: BASE EXCESS VENOUS -2.2 (-2.0-3.0); PH,VENOUS 7.38 (7.31-7.41)
[2023-07-13 04:00] LABS: BASOPHILS PERCENT AUTO 0.2 % (0.0-1.5); HEMATOCRIT 38.1 % (36.0-46.0); HEMOGLOBIN 12.6 g/dL (12.0-16.0); LYMPHOCYTES ABSOLUTE AUTO 1.1 K/uL (0.6-2.4); LYMPHOCYTES PERCENT AUTO 26.1 % (16.0-40.0); MEAN CORPUSCULAR HEMOGLOBIN 33.1 pg (27.0-32.0); MEAN CORPUSCULAR HGB CONC 33.1 g/dL (31.0-37.0); MONOCYTES ABSOLUTE AUTO 0.3 K/uL (0.0-0.8); MONOCYTES PERCENT AUTO 7.6 % (0.0-15.0); NEUTROPHILS ABSOLUTE AUTO 2.9 K/uL (1.4-5.7); NEUTROPHILS PERCENT AUTO 66.1 % (48.0-80.0); NRBC ABSOLUTE 0 K/uL; RED BLOOD CELL COUNT 3.81 M/uL (4.30-5.90); WHITE BLOOD CELL COUNT,WBC 4.37 K/uL (4.0-11.0)
[2023-07-13 04:04] LABS: INR 1.13 (0.86-1.11)
[2023-07-13 04:33] LABS: APPEARANCE,URINE CLEAR; BILIRUBIN,URINE NEGATIVE (NEGATIVE); COLOR,URINE YELLOW; GLUCOSE,URINE NEGATIVE (NEGATIVE); KETONES,URINE TRACE mg/dL (NEGATIVE); LEUKOCYTE ESTERASE,URINE NEGATIVE (NEGATIVE); NITRITE,URINE NEGATIVE (NEGATIVE); OCCULT BLOOD,URINE NEGATIVE (NEGATIVE); PROTEIN,URINE NEGATIVE (NEGATIVE); UROBILINOGEN,URINE 0.2 EU/dL (<2.0)
[2023-07-13] MEDS ORDERED: Lactulose Soln 10 GM/15 ML 15 ML UD Cup PO ONE (04:47)
[2023-07-13 04:48] LABS: A/G RATIO 0.7 (0.9-1.6); ACETAMINOPHEN <2.0 ug/mL; ALANINE AMINOTRANSFERASE,ALT 30 IU/L (14-63); ALBUMIN 2.9 g/dL (3.4-5.0); ALKALINE PHOSPHATASE 155 U/L (46-116); ASPARTATE AMNIOTRANSFERASE,AST 37 IU/L (15-37); BILIRUBIN TOTAL 1.8 mg/dL (0.2-1.0); BLOOD UREA NITROGEN,BUN 31 mg/dL (7.0-18.0); CALCIUM 10.1 mg/dL (8.5-10.1); CARBON DIOXIDE,CO2 23.4 mmol/L (21.0-32.0); CHLORIDE,CL 108 mmol/L (98-107); GLUCOSE RANDOM 111 mg/dL (74-106); LIPASE 61 U/L (16-77); MAGNESIUM 1.8 mg/dL (1.8-2.4); POTASSIUM,K 4.7 mmol/L (3.5-5.1); PROTEIN TOTAL,TP 6.9 g/dL (6.4-8.2); SALICYLATE <0.2 mg/dL (0.0-20.0); SODIUM,NA 140 mmol/L (136-145); TSH ULTRASENSITIVE 1.53 uIU/mL (0.36-3.74)
[2023-07-13 04:51] LABS: ESTIMATED GFR 24 mL/min (>60); ETHANOL BLOOD MEDICAL < 3.0 mg/dL
[2023-07-13 04:52] LABS: PLATELET COUNT,PLT 90 K/uL (150-400)
[2023-07-13] MEDS ORDERED: Lactated Ringers 1,000 ML IV SCH (05:00)
[2023-07-13] MEDS ORDERED: Ondansetron 4 MG/2 ML SDV IVPUSH PRN (11:09)
[2023-07-13] MEDS ORDERED: Acetaminophen 325 MG Tab PO PRN (11:09)
[2023-07-13] MEDS: Pantoprazole 40 MG in Sodium Chloride 0.9% 10 ML IVPUSH SCH (12:25)
[2023-07-13] MEDS: Enoxaparin 30 MG/0.3 ML Syringe SUBCUT SCH (12:25)
[2023-07-13] MEDS ORDERED: Lactulose Soln 10 GM/15 ML 15 ML UD Cup PO SCH (14:30)
[2023-07-13] MEDS ORDERED: Pantoprazole 40 MG Tab.CR PO SCH (14:30)
[2023-07-13] MEDS: Levothyroxine 125 MCG Tab PO SCH (14:50)
[2023-07-13] MEDS: Carvedilol 6.25 MG Tab PO SCH ×2 (14:50→20:41)
[2023-07-13] MEDS: Lactulose Soln 10 GM/15 ML 15 ML UD Cup PO SCH (22:48)
[2023-07-14 05:53] LABS: BASOPHILS PERCENT AUTO 0.2 % (0.0-1.5); HEMATOCRIT 35.9 % (36.0-46.0); HEMOGLOBIN 11.5 g/dL (12.0-16.0); LYMPHOCYTES PERCENT AUTO 20.8 % (16.0-40.0); MONOCYTES ABSOLUTE AUTO 0.4 K/uL (0.0-0.8); MONOCYTES PERCENT AUTO 7.5 % (0.0-15.0); NEUTROPHILS ABSOLUTE AUTO 3.3 K/uL (1.4-5.7); NEUTROPHILS PERCENT AUTO 71.5 % (48.0-80.0); NRBC ABSOLUTE 0 K/uL; PLATELET COUNT,PLT 65 K/uL (150-400); RED BLOOD CELL COUNT 3.59 M/uL (4.30-5.90); WHITE BLOOD CELL COUNT,WBC 4.66 K/uL (4.0-11.0)
[2023-07-14 06:18] LABS: A/G RATIO 0.9 (0.9-1.6); ALBUMIN 2.9 g/dL (3.4-5.0); BILIRUBIN TOTAL 1.8 mg/dL (0.2-1.0); CALCIUM 9.4 mg/dL (8.5-10.1); CARBON DIOXIDE,CO2 22.8 mmol/L (21.0-32.0); CREATININE 2.1 mg/dL (0.6-1.0); EST CRCL DRUG DOSING (CG) 20.1 mL/min; MAGNESIUM 1.7 mg/dL (1.8-2.4); POTASSIUM,K 4.6 mmol/L (3.5-5.1); PROTEIN TOTAL,TP 6.3 g/dL (6.4-8.2)
[2023-07-14] MEDS: Lactulose Soln 10 GM/15 ML 15 ML UD Cup PO SCH ×5 (06:35→21:42)
[2023-07-14] MEDS: Levothyroxine 125 MCG Tab PO SCH ×2 (06:35→06:37)
[2023-07-14] MEDS: Carvedilol 6.25 MG Tab PO SCH ×2 (09:18→20:07)
[2023-07-14] MEDS ORDERED: Magnesium Sulfate/Water 2 GM in Premix Bag 1 BAG IV ONE (10:00)
[2023-07-14] MEDS: Lactated Ringers 1,000 ML IV SCH ×2 (10:21→19:22)
[2023-07-14] MEDS: Pantoprazole 40 MG in Sodium Chloride 0.9% 10 ML IVPUSH SCH (10:21)
[2023-07-14] MEDS: Enoxaparin 30 MG/0.3 ML Syringe SUBCUT SCH (12:59)
[2023-07-15] MEDS: Lactulose Soln 10 GM/15 ML 15 ML UD Cup PO SCH (05:36)
[2023-07-15] MEDS: Lactated Ringers 1,000 ML IV SCH (05:36)
[2023-07-15] MEDS: Levothyroxine 125 MCG Tab PO SCH ×3 (05:42→06:35)
[2023-07-15 05:51] LABS: BASOPHILS PERCENT AUTO 0.5 % (0.0-1.5); EOSINOPHILS ABSOLUTE AUTO 0.1 K/uL (0.0-0.7); EOSINOPHILS PERCENT AUTO 2.3 % (0.0-7.0); HEMATOCRIT 32.6 % (36.0-46.0); LYMPHOCYTES ABSOLUTE AUTO 1.1 K/uL (0.6-2.4); LYMPHOCYTES PERCENT AUTO 24.5 % (16.0-40.0); MEAN CORPUSCULAR HEMOGLOBIN 34.1 pg (27.0-32.0); MEAN CORPUSCULAR HGB CONC 33.7 g/dL (31.0-37.0); MEAN CORPUSCULAR VOLUME 100.9 fL (80.0-98.0); MONOCYTES ABSOLUTE AUTO 0.4 K/uL (0.0-0.8); MONOCYTES PERCENT AUTO 8.8 % (0.0-15.0); NEUTROPHILS ABSOLUTE AUTO 2.8 K/uL (1.4-5.7); NEUTROPHILS PERCENT AUTO 63.9 % (48.0-80.0); PLATELET COUNT,PLT 58 K/uL (150-400); RED BLOOD CELL COUNT 3.23 M/uL (4.30-5.90); WHITE BLOOD CELL COUNT,WBC 4.33 K/uL (4.0-11.0)
[2023-07-15 06:06] LABS: A/G RATIO 0.8 (0.9-1.6); ALBUMIN 2.6 g/dL (3.4-5.0); BILIRUBIN TOTAL 2.1 mg/dL (0.2-1.0); CALCIUM 9.4 mg/dL (8.5-10.1); CARBON DIOXIDE,CO2 21.4 mmol/L (21.0-32.0); CREATININE 1.6 mg/dL (0.6-1.0); EST CRCL DRUG DOSING (CG) 26.38 mL/min; MAGNESIUM 1.6 mg/dL (1.8-2.4); POTASSIUM,K 4.3 mmol/L (3.5-5.1); PROTEIN TOTAL,TP 5.7 g/dL (6.4-8.2)
[2023-07-15] MEDS ORDERED: Magnesium Sulfate/Water 2 GM in Premix Bag 1 BAG IV ONE (08:30)
[2023-07-15] MEDS: Carvedilol 6.25 MG Tab PO SCH (09:39)
[2023-07-15] MEDS: Pantoprazole 40 MG in Sodium Chloride 0.9% 10 ML IVPUSH SCH (10:51)
[2023-07-15] MEDS ORDERED: FLU (Fluad Quad) 2023-24(65UP)/MF59C/PF 60 MCG/0.5 ML Syringe IM ONE (11:08)
== END 2023-07-15 12:37 | disposition home or self-care (01) | DRG 71 ==
LOC: MW.ED 03:41 → MW.MS 07:55 → OBSVTOIN 07-14 10:00
PROVIDERS: ADMIT Family Medicine; ATTEND Family Medicine
DX: G93.41 Metabolic encephalopathy (principal); E72.20 Disorder of urea cycle metabolism, unspecified; G25.81 Restless legs syndrome; K74.60 Unspecified cirrhosis of liver; I49.3 Ventricular premature depolarization; K76.82 Hepatic encephalopathy; K72.90 Hepatic failure, unspecified without coma; I45.10 Unspecified right bundle-branch block; I44.4 Left anterior fascicular block; Z20.822 Contact with and (suspected) exposure to COVID-19; I11.0 Hypertensive heart disease with heart failure; I50.9 Heart failure, unspecified; Z88.0 Allergy status to penicillin; E11.9 Type 2 diabetes mellitus without complications; Z98.49 Cataract extraction status, unspecified eye; Z90.49 Acquired absence of other specified parts of digestive tract; E03.9 Hypothyroidism, unspecified; E78.00 Pure hypercholesterolemia, unspecified; Z79.82 Long term (current) use of aspirin; Z79.84 Long term (current) use of oral hypoglycemic drugs; Z79.899 Other long term (current) drug therapy
CPT/HCPCS: 36415 ×2; 70450; 71045; 80053 ×2; 80143; 80179; 80307; 81003; 82140 ×2; 82803; 83690; 83735 ×2; 84443; 84484; 85025 ×2; 85610; 86850; 86900; 86901; 93005; 96361; 96372; 96374; 99285; A9270 ×7; C9113; G0378 ×3; J1650; J3490; J7120; U0002; 90694; 93010; 96360; 99283; G0008; J3475

== ENCOUNTER 2023-07-18 11:09 | Inpatient (IN) | payer MEDICARE, BC ==
[2023-07-18] MEDS ORDERED: Sodium Chloride 0.9% 2.5 ML Syringe FLUSH PRN (11:10)
[2023-07-18] MEDS ORDERED: Sodium Chloride 0.9% 10 ML Syringe FLUSH PRN (11:10)
[2023-07-18 11:18] LABS: BASE EXCESS VENOUS -0.5 (-2.0-3.0); PH,VENOUS 7.43 (7.31-7.41)
[2023-07-18 11:22] LABS: BASOPHILS ABSOLUTE AUTO 0.02 K/uL (0.00-0.20); BASOPHILS PERCENT AUTO 0.5 % (0.0-1.0); HEMATOCRIT 32.1 % (37.0-47.0); IMMATURE GRAN ABSOLUTE AUTO 0.01 K/uL (0.00-0.05); IMMATURE GRAN PERCENT AUTO 0.2 % (0.0-0.4); LYMPHOCYTES ABSOLUTE AUTO 0.59 K/uL (1.00-4.80); LYMPHOCYTES PERCENT AUTO 13.3 % (24.0-44.0); MEAN CORPUSCULAR HEMOGLOBIN 33.5 pg (28.0-32.0); MEAN CORPUSCULAR HGB CONC 34.3 g/dL (32.0-36.0); MEAN CORPUSCULAR VOLUME 97.9 fL (83.0-99.0); MEAN PLATELET VOLUME 13.2 fL (9.4-12.3); MONOCYTES ABSOLUTE AUTO 0.43 K/uL (0.00-0.80); MONOCYTES PERCENT AUTO 9.7 % (0.0-8.0); NEUTROPHILS ABSOLUTE AUTO 3.4 K/uL (1.8-7.7); NEUTROPHILS PERCENT AUTO 76.3 % (41.0-71.0); PLATELET COUNT,PLT 55 K/uL (150-400); RED BLOOD CELL COUNT 3.28 M/uL (4.10-5.30); WHITE BLOOD CELL COUNT,WBC 4.43 K/uL (3.9-11.3)
[2023-07-18 11:34] LABS: INR 1.17 (0.86-1.11); PTT,PARTIAL THROMBOPLSTIN TIME 26.2 SEC (23.9-30.7)
[2023-07-18 11:45] LABS: LACTIC ACID 2.1 mmol/L (0.4-2.0)
[2023-07-18 11:51] LABS: A/G RATIO 0.8 (0.9-1.6); ACETAMINOPHEN <2.0 ug/mL; ALANINE AMINOTRANSFERASE,ALT 34 IU/L (14-63); ALBUMIN 2.8 g/dL (3.4-5.0); ALKALINE PHOSPHATASE 156 U/L (46-116); ASPARTATE AMNIOTRANSFERASE,AST 44 IU/L (15-37); BILIRUBIN TOTAL 1.2 mg/dL (0.2-1.0); BLOOD UREA NITROGEN,BUN 34 mg/dL (7.0-18.0); CALCIUM 9.2 mg/dL (8.5-10.1); CARBON DIOXIDE,CO2 24.5 mmol/L (21.0-32.0); CREATININE 1.6 mg/dL (0.6-1.0); ETHANOL BLOOD MEDICAL <3 mg/dL; GLUCOSE RANDOM 125 mg/dL (74-106); MAGNESIUM 1.9 mg/dL (1.8-2.4); PROTEIN TOTAL,TP 6.3 g/dL (6.4-8.2); SALICYLATE <0.2 mg/dL (0.0-20.0); TSH ULTRASENSITIVE 0.67 uIU/mL (0.36-3.74)
[2023-07-18 11:52] LABS: ESTIMATED GFR 31 mL/min (>60)
[2023-07-18 12:00] LABS: CHLORIDE,CL 108 mmol/L (98-107); POTASSIUM,K 4.4 mmol/L (3.5-5.1); SODIUM,NA 142 mmol/L (136-145)
[2023-07-18] MEDS ORDERED: Ondansetron 4 MG/2 ML SDV IVPUSH PRN (15:49)
[2023-07-18] MEDS ORDERED: Acetaminophen 325 MG Tab PO PRN (15:49)
[2023-07-18] MEDS ORDERED: Enoxaparin 40 MG/0.4 ML Syringe SUBCUT SCH (16:00)
[2023-07-18] MEDS: Pantoprazole 40 MG in Sodium Chloride 0.9% 10 ML IVPUSH SCH (16:50)
[2023-07-18] MEDS: Sodium Chloride 0.9% 1,000 ML IV SCH (17:24)
[2023-07-18] MEDS: Lactulose Soln 10 GM/15 ML 15 ML UD Cup PO SCH (22:00)
[2023-07-18] MEDS: rOPINIRole 1 MG Tab PO SCH (22:01)
[2023-07-18 23:42] LABS: APPEARANCE,URINE CLOUDY; BILIRUBIN,URINE NEGATIVE (NEGATIVE); COLOR,URINE YELLOW; GLUCOSE,URINE 250 mg/dL (NEGATIVE); KETONES,URINE NEGATIVE (NEGATIVE); LEUKOCYTE ESTERASE,URINE LARGE (NEGATIVE); NITRITE,URINE NEGATIVE (NEGATIVE); OCCULT BLOOD,URINE SMALL (NEGATIVE); PROTEIN,URINE NEGATIVE (NEGATIVE); UROBILINOGEN,URINE 0.2 EU/dL (<2.0)
[2023-07-18 23:52] LABS: AMPHETAMINES SCREEN, URINE NEGATIVE (CUTOFF=500); BARBITURATE SCREEN,URINE NEGATIVE (CUTOFF=200); BENZODIAZEPINES SCREEN,URINE NEGATIVE (CUTOFF=150); BUPRENORPHINE SCREEN,URINE NEGATIVE (CUTOFF=10); METHADONE SCREEN, URINE NEGATIVE (CUTOFF=200); METHAMPHETAMINES SCREEN, URINE NEGATIVE (CUTOFF=500); OXYCODONE SCREEN,URINE NEGATIVE (CUT0FF=100); PCP SCREEN,URINE NEGATIVE (CUTOFF=25); PROPOXYPHENE SCREEN,URINE NEGATIVE (CUTOFF=300); THC SCREEN,URINE 20 NG/ML NEGATIVE (CUTOFF=50)
[2023-07-19 00:08] LABS: BACTERIA,URINE 1+ (NEGATIVE); MUCUS,URINE LIGHT (NONE-MOD); SQUAMOUS EPITHELIAL CELLS,UR FEW; WBC,URINE >100 (0-5/HPF)
[2023-07-19] MEDS: Sodium Chloride 0.9% 1,000 ML IV SCH ×2 (02:13→13:26)
[2023-07-19] MEDS: Lactulose Soln 10 GM/15 ML 15 ML UD Cup PO SCH ×3 (05:02→18:46)
[2023-07-19 06:13] LABS: BASOPHILS ABSOLUTE AUTO 0.03 K/uL (0.00-0.20); BASOPHILS PERCENT AUTO 0.7 % (0.0-1.0); HEMATOCRIT 31.5 % (37.0-47.0); HEMOGLOBIN 10.7 g/dL (12.0-16.0); IMMATURE GRAN ABSOLUTE AUTO 0.01 K/uL (0.00-0.05); IMMATURE GRAN PERCENT AUTO 0.2 % (0.0-0.4); LYMPHOCYTES ABSOLUTE AUTO 0.93 K/uL (1.00-4.80); LYMPHOCYTES PERCENT AUTO 22.8 % (24.0-44.0); MEAN CORPUSCULAR HEMOGLOBIN 33.5 pg (28.0-32.0); MEAN CORPUSCULAR VOLUME 98.7 fL (83.0-99.0); MEAN PLATELET VOLUME 12.9 fL (9.4-12.3); MONOCYTES ABSOLUTE AUTO 0.36 K/uL (0.00-0.80); MONOCYTES PERCENT AUTO 8.8 % (0.0-8.0); NEUTROPHILS ABSOLUTE AUTO 2.8 K/uL (1.8-7.7); NEUTROPHILS PERCENT AUTO 67.5 % (41.0-71.0); PLATELET COUNT,PLT 60 K/uL (150-400); RED BLOOD CELL COUNT 3.19 M/uL (4.10-5.30); WHITE BLOOD CELL COUNT,WBC 4.08 K/uL (3.9-11.3)
[2023-07-19] MEDS: Levothyroxine 125 MCG Tab PO SCH (06:30)
[2023-07-19 06:39] LABS: A/G RATIO 0.9 (0.9-1.6); ALBUMIN 2.7 g/dL (3.4-5.0); BILIRUBIN TOTAL 1.5 mg/dL (0.2-1.0); CALCIUM 9.1 mg/dL (8.5-10.1); CARBON DIOXIDE,CO2 22.8 mmol/L (21.0-32.0); CREATININE 1.3 mg/dL (0.6-1.0); EST CRCL DRUG DOSING (CG) 32.46 mL/min; PROTEIN TOTAL,TP 5.8 g/dL (6.4-8.2)
[2023-07-19] MEDS: cefTRIAXone 1 GM in Sodium Chloride 0.9% 50 ML IV SCH (09:14)
[2023-07-19] MEDS: OLMESARTAN 40 MG PO SCH (15:17)
[2023-07-19] MEDS: Pantoprazole 40 MG in Sodium Chloride 0.9% 10 ML IVPUSH SCH (16:12)
[2023-07-19] MEDS ORDERED: Carvedilol 6.25 MG Tab PO SCH (21:00)
[2023-07-19] MEDS ORDERED: Aspirin 81 MG Tab.EC PO SCH (21:00)
[2023-07-19] MEDS ORDERED: BIMATOPROST 0.01% EYEBOTH SCH (21:00)
[2023-07-19] MEDS: rOPINIRole 1 MG Tab PO SCH (21:08)
[2023-07-20] MEDS: Lactulose Soln 10 GM/15 ML 15 ML UD Cup PO SCH ×3 (00:33→12:01)
[2023-07-20] MEDS: Sodium Chloride 0.9% 1,000 ML IV SCH (00:33)
[2023-07-20] MEDS: Levothyroxine 125 MCG Tab PO SCH ×2 (06:17→06:52)
[2023-07-20 06:39] LABS: BASOPHILS ABSOLUTE AUTO 0.02 K/uL (0.00-0.20); BASOPHILS PERCENT AUTO 0.7 % (0.0-1.0); IMMATURE GRAN ABSOLUTE AUTO 0.01 K/uL (0.00-0.05); IMMATURE GRAN PERCENT AUTO 0.4 % (0.0-0.4); LYMPHOCYTES ABSOLUTE AUTO 0.87 K/uL (1.00-4.80); LYMPHOCYTES PERCENT AUTO 30.5 % (24.0-44.0); MEAN CORPUSCULAR HEMOGLOBIN 33.3 pg (28.0-32.0); MEAN CORPUSCULAR HGB CONC 33.3 g/dL (32.0-36.0); MEAN PLATELET VOLUME 13.3 fL (9.4-12.3); MONOCYTES ABSOLUTE AUTO 0.31 K/uL (0.00-0.80); MONOCYTES PERCENT AUTO 10.9 % (0.0-8.0); NEUTROPHILS ABSOLUTE AUTO 1.6 K/uL (1.8-7.7); NEUTROPHILS PERCENT AUTO 57.5 % (41.0-71.0); WHITE BLOOD CELL COUNT,WBC 2.85 K/uL (3.9-11.3)
[2023-07-20 06:58] LABS: PLATELET COUNT,PLT 48 K/uL (150-400)
[2023-07-20 07:06] LABS: A/G RATIO 0.8 (0.9-1.6); ALBUMIN 2.5 g/dL (3.4-5.0); CALCIUM 8.4 mg/dL (8.5-10.1); CARBON DIOXIDE,CO2 21.6 mmol/L (21.0-32.0); CREATININE 1.3 mg/dL (0.6-1.0); EST CRCL DRUG DOSING (CG) 32.46 mL/min; POTASSIUM,K 3.7 mmol/L (3.5-5.1); PROTEIN TOTAL,TP 5.5 g/dL (6.4-8.2)
[2023-07-20] MEDS: cefTRIAXone 1 GM in Sodium Chloride 0.9% 50 ML IV SCH (08:31)
[2023-07-20] MEDS: OLMESARTAN 40 MG PO SCH (08:34)
[2023-07-20] MEDS ORDERED: Spironolactone 25 MG Tab PO SCH (09:00)
== END 2023-07-20 15:00 | disposition home health service (06) | DRG 441 ==
LOC: MW.ED 11:09 → MW.MS 13:13 → OBSVTOIN 07-19 15:47
PROVIDERS: ADMIT Family Medicine; ATTEND Family Medicine
DX: K76.82 Hepatic encephalopathy (principal); G93.41 Metabolic encephalopathy; N30.01 Acute cystitis with hematuria; I45.2 Bifascicular block; E11.9 Type 2 diabetes mellitus without complications; G25.81 Restless legs syndrome; K74.60 Unspecified cirrhosis of liver; E78.00 Pure hypercholesterolemia, unspecified; I11.0 Hypertensive heart disease with heart failure; I50.9 Heart failure, unspecified; D69.6 Thrombocytopenia, unspecified; E03.9 Hypothyroidism, unspecified; Z85.828 Personal history of other malignant neoplasm of skin; Z90.49 Acquired absence of other specified parts of digestive tract; Z98.49 Cataract extraction status, unspecified eye; Z98.890 Other specified postprocedural states; Z91.148 Patient's other noncompliance with medication regimen for other reason; Z79.82 Long term (current) use of aspirin; Z79.899 Other long term (current) drug therapy; Z88.0 Allergy status to penicillin
CPT/HCPCS: 36415 ×2; 70450; 71045; 80053 ×2; 80143; 80179; 80305; 80307; 81001; 82140 ×2; 82803; 82947; 83605 ×2; 83735; 84443; 84484; 85025 ×2; 85610; 85730; 87040 ×2; 87086; 87088; 87186; 93005; 99285; A9270 ×5; C9113; J0696; J1650; J2405; J3490 ×3; J7030 ×3; 93010; 96361; 96365; 96372; 96375; 99283; G0378

== ENCOUNTER 2023-07-24 19:48 | Observation (INO) | payer MEDICARE, BC ==
[2023-07-24] MEDS ORDERED: Sodium Chloride 0.9% 10 ML Syringe FLUSH PRN (21:50)
[2023-07-24] MEDS ORDERED: Sodium Chloride 0.9% 2.5 ML Syringe FLUSH PRN (21:50)
[2023-07-24] MEDS ORDERED: Sodium Chloride 0.9% 500 ML IV SCH (22:00)
[2023-07-24 22:26] LABS: BASOPHILS ABSOLUTE AUTO 0.02 K/uL (0.00-0.20); BASOPHILS PERCENT AUTO 0.7 % (0.0-1.0); HEMATOCRIT 26.8 % (37.0-47.0); HEMOGLOBIN 9.3 g/dL (12.0-16.0); IMMATURE GRAN ABSOLUTE AUTO 0.01 K/uL (0.00-0.05); IMMATURE GRAN PERCENT AUTO 0.3 % (0.0-0.4); LYMPHOCYTES ABSOLUTE AUTO 0.55 K/uL (1.00-4.80); LYMPHOCYTES PERCENT AUTO 17.9 % (24.0-44.0); MEAN CORPUSCULAR HEMOGLOBIN 34.1 pg (28.0-32.0); MEAN CORPUSCULAR HGB CONC 34.7 g/dL (32.0-36.0); MEAN CORPUSCULAR VOLUME 98.2 fL (83.0-99.0); MEAN PLATELET VOLUME 12.8 fL (9.4-12.3); MONOCYTES ABSOLUTE AUTO 0.31 K/uL (0.00-0.80); MONOCYTES PERCENT AUTO 10.1 % (0.0-8.0); NEUTROPHILS ABSOLUTE AUTO 2.18 K/uL (1.80-7.70); PLATELET COUNT,PLT 59 K/uL (150-400); RED BLOOD CELL COUNT 2.73 M/uL (4.10-5.30); WHITE BLOOD CELL COUNT,WBC 3.07 K/uL (3.9-11.3)
[2023-07-24] MEDS ORDERED: Iopamidol 755 MG/ML 500 ML Multipack Bottle IVPUSH ONE (22:30)
[2023-07-24 22:36] LABS: INR 1.12 (0.86-1.11)
[2023-07-24 22:50] LABS: LACTIC ACID 1.4 mmol/L (0.4-2.0)
[2023-07-24 22:52] LABS: A/G RATIO 0.8 (0.9-1.6); ALBUMIN 2.8 g/dL (3.4-5.0); BILIRUBIN TOTAL 0.6 mg/dL (0.2-1.0); CALCIUM 9.1 mg/dL (8.5-10.1); CARBON DIOXIDE,CO2 19.4 mmol/L (21.0-32.0); CREATININE 2.4 mg/dL (0.6-1.0); EST CRCL DRUG DOSING (CG) 15.14 mL/min; POTASSIUM,K 5.9 mmol/L (3.5-5.1); PROTEIN TOTAL,TP 6.2 g/dL (6.4-8.2)
[2023-07-25] MEDS ORDERED: Sodium Chloride 0.9% 500 ML IV SCH (00:15)
[2023-07-25 00:42] LABS: BILIRUBIN,URINE NEGATIVE (NEGATIVE); COLOR,URINE YELLOW; GLUCOSE,URINE NEGATIVE (NEGATIVE); KETONES,URINE NEGATIVE (NEGATIVE); LEUKOCYTE ESTERASE,URINE TRACE (NEGATIVE); NITRITE,URINE NEGATIVE (NEGATIVE); OCCULT BLOOD,URINE NEGATIVE (NEGATIVE); PH,URINE 5.5 (5.0-8.0); PROTEIN,URINE NEGATIVE (NEGATIVE); UROBILINOGEN,URINE 0.2 EU/dL (<2.0)
[2023-07-25 01:22] LABS: APPEARANCE,URINE HAZY; BACTERIA,URINE FEW (NEGATIVE); CALCIUM OXALATE CRYSTALS,URINE MODERATE (NEGATIVE); EPITHELIAL CELLS,URINE FEW (NONE-FEW)
[2023-07-25] MEDS: Lactated Ringers 1,000 ML IV SCH ×2 (03:20→16:29)
[2023-07-25] MEDS: cefTRIAXone 1 GM in Sodium Chloride 0.9% 50 ML IV SCH (08:43)
[2023-07-25] MEDS ORDERED: Ondansetron 4 MG/2 ML SDV IVPUSH PRN (10:08)
[2023-07-25] MEDS ORDERED: Acetaminophen 325 MG Tab PO PRN (10:08)
[2023-07-25] MEDS: Pantoprazole 40 MG in Sodium Chloride 0.9% 10 ML IVPUSH SCH (11:19)
[2023-07-25 11:23] LABS: A/G RATIO 0.8 (0.9-1.6); ALBUMIN 2.4 g/dL (3.4-5.0); BILIRUBIN TOTAL 0.7 mg/dL (0.2-1.0); CALCIUM 8.5 mg/dL (8.5-10.1); CARBON DIOXIDE,CO2 19.7 mmol/L (21.0-32.0); CREATININE 1.8 mg/dL (0.6-1.0); EST CRCL DRUG DOSING (CG) 20.19 mL/min; PHOSPHORUS 3.1 mg/dL (2.6-4.7); POTASSIUM,K 5.4 mmol/L (3.5-5.1); PROTEIN TOTAL,TP 5.6 g/dL (6.4-8.2)
[2023-07-25 11:51] LABS: BASOPHILS ABSOLUTE AUTO 0.01 K/uL (0.00-0.20); BASOPHILS PERCENT AUTO 0.5 % (0.0-1.0); HEMATOCRIT 24.6 % (37.0-47.0); HEMOGLOBIN 8.6 g/dL (12.0-16.0); IMMATURE GRAN ABSOLUTE AUTO 0.01 K/uL (0.00-0.05); IMMATURE GRAN PERCENT AUTO 0.5 % (0.0-0.4); LYMPHOCYTES ABSOLUTE AUTO 0.48 K/uL (1.00-4.80); LYMPHOCYTES PERCENT AUTO 23.3 % (24.0-44.0); MEAN CORPUSCULAR HEMOGLOBIN 34.5 pg (28.0-32.0); MEAN CORPUSCULAR VOLUME 98.8 fL (83.0-99.0); MEAN PLATELET VOLUME 12.6 fL (9.4-12.3); MONOCYTES ABSOLUTE AUTO 0.17 K/uL (0.00-0.80); MONOCYTES PERCENT AUTO 8.3 % (0.0-8.0); NEUTROPHILS ABSOLUTE AUTO 1.39 K/uL (1.80-7.70); NEUTROPHILS PERCENT AUTO 67.4 % (41.0-71.0); PLATELET COUNT,PLT 48 K/uL (150-400); RED BLOOD CELL COUNT 2.49 M/uL (4.10-5.30); WHITE BLOOD CELL COUNT,WBC 2.06 K/uL (3.9-11.3)
[2023-07-25] MEDS: Levothyroxine 125 MCG Tab PO SCH (14:12)
[2023-07-25] MEDS ORDERED: rOPINIRole 0.5 MG Tab PO SCH (21:00)
[2023-07-26 06:19] LABS: BASOPHILS ABSOLUTE AUTO 0.01 K/uL (0.00-0.20); BASOPHILS PERCENT AUTO 0.5 % (0.0-1.0); HEMATOCRIT 25.8 % (37.0-47.0); HEMOGLOBIN 8.7 g/dL (12.0-16.0); IMMATURE GRAN ABSOLUTE AUTO 0.01 K/uL (0.00-0.05); IMMATURE GRAN PERCENT AUTO 0.5 % (0.0-0.4); LYMPHOCYTES ABSOLUTE AUTO 0.58 K/uL (1.00-4.80); LYMPHOCYTES PERCENT AUTO 26.7 % (24.0-44.0); MEAN CORPUSCULAR HEMOGLOBIN 33.2 pg (28.0-32.0); MEAN CORPUSCULAR HGB CONC 33.7 g/dL (32.0-36.0); MEAN CORPUSCULAR VOLUME 98.5 fL (83.0-99.0); MEAN PLATELET VOLUME 11.9 fL (9.4-12.3); MONOCYTES PERCENT AUTO 9.2 % (0.0-8.0); NEUTROPHILS ABSOLUTE AUTO 1.37 K/uL (1.80-7.70); NEUTROPHILS PERCENT AUTO 63.1 % (41.0-71.0); PLATELET COUNT,PLT 55 K/uL (150-400); RED BLOOD CELL COUNT 2.62 M/uL (4.10-5.30); WHITE BLOOD CELL COUNT,WBC 2.17 K/uL (3.9-11.3)
[2023-07-26] MEDS: Levothyroxine 125 MCG Tab PO SCH (06:35)
[2023-07-26] MEDS: Pantoprazole 40 MG in Sodium Chloride 0.9% 10 ML IVPUSH SCH (06:35)
[2023-07-26] MEDS: Lactated Ringers 1,000 ML IV SCH (06:40)
[2023-07-26 07:10] LABS: A/G RATIO 0.8 (0.9-1.6); ALBUMIN 2.6 g/dL (3.4-5.0); BILIRUBIN TOTAL 1.1 mg/dL (0.2-1.0); CALCIUM 9.2 mg/dL (8.5-10.1); CARBON DIOXIDE,CO2 21.5 mmol/L (21.0-32.0); CREATININE 1.9 mg/dL (0.6-1.0); EST CRCL DRUG DOSING (CG) 19.13 mL/min; POTASSIUM,K 5.9 mmol/L (3.5-5.1); PROTEIN TOTAL,TP 5.9 g/dL (6.4-8.2)
[2023-07-26] MEDS: cefTRIAXone 1 GM in Sodium Chloride 0.9% 50 ML IV SCH (08:45)
[2023-07-26] MEDS ORDERED: Sodium Polystyrene Sulfonate 15 GM/60 ML Susp 60 ML Bot PO ONE (09:00)
[2023-07-26] MEDS ORDERED: Chlorthalidone 25 MG Tab PO SCH (09:15)
[2023-07-26 12:49] LABS: CALCIUM 9.4 mg/dL (8.5-10.1); CARBON DIOXIDE,CO2 23.8 mmol/L (21.0-32.0); CREATININE 1.5 mg/dL (0.6-1.0); EST CRCL DRUG DOSING (CG) 24.23 mL/min; POTASSIUM,K 5.3 mmol/L (3.5-5.1)
== END 2023-07-26 17:30 | disposition home or self-care (01) ==
LOC: MW.ED 19:48 → MW.MS 07-25 01:38
PROVIDERS: ADMIT Family Medicine; ATTEND Family Medicine
DX: I95.9 Hypotension, unspecified (principal); G93.41 Metabolic encephalopathy; K74.60 Unspecified cirrhosis of liver; I11.0 Hypertensive heart disease with heart failure; E11.29 Type 2 diabetes mellitus with other diabetic kidney complication; E78.00 Pure hypercholesterolemia, unspecified; E03.9 Hypothyroidism, unspecified; I50.9 Heart failure, unspecified; N17.9 Acute kidney failure, unspecified; E86.0 Dehydration; E72.20 Disorder of urea cycle metabolism, unspecified; E05.90 Thyrotoxicosis, unspecified without thyrotoxic crisis or storm; N30.01 Acute cystitis with hematuria; G25.81 Restless legs syndrome; Z90.89 Acquired absence of other organs; Z90.49 Acquired absence of other specified parts of digestive tract; Z79.899 Other long term (current) drug therapy; Z79.82 Long term (current) use of aspirin; Z79.890 Hormone replacement therapy; Z88.0 Allergy status to penicillin
CPT/HCPCS: 36415; 71045; 74176; 80048; 80053; 81001; 82140; 82947; 83605; 83690; 84100; 84484; 85025; 85610; 87040; 93005; 96361; 96365; 96366; 96375; 96376; 99285; A9270; C9113; G0378; J0696; J3490; J7040; J7120; 93010; 96360; 99284

== ENCOUNTER 2023-08-21 12:19 | Observation (INO) | payer MEDICARE, BC ==
[2023-08-21] MEDS ORDERED: Sodium Chloride 0.9% 10 ML Syringe FLUSH PRN ×2 (12:38→16:14)
[2023-08-21] MEDS ORDERED: Sodium Chloride 0.9% 2.5 ML Syringe FLUSH PRN ×2 (12:38→16:14)
[2023-08-21 13:00] LABS: HEMATOCRIT 34.4 % (37.0-47.0); HEMOGLOBIN 11.7 g/dL (12.0-16.0); MEAN CORPUSCULAR HEMOGLOBIN 33.6 pg (28.0-32.0); MEAN CORPUSCULAR VOLUME 98.9 fL (83.0-99.0); MEAN PLATELET VOLUME 12.2 fL (9.4-12.3); PLATELET COUNT,PLT 87 K/uL (150-400); RED BLOOD CELL COUNT 3.48 M/uL (4.10-5.30); WHITE BLOOD CELL COUNT,WBC 4.72 K/uL (3.9-11.3)
[2023-08-21 13:07] LABS: APPEARANCE,URINE CLOUDY; BILIRUBIN,URINE NEGATIVE (NEGATIVE); COLOR,URINE YELLOW; GLUCOSE,URINE NEGATIVE (NEGATIVE); KETONES,URINE TRACE mg/dL (NEGATIVE); LEUKOCYTE ESTERASE,URINE LARGE (NEGATIVE); NITRITE,URINE NEGATIVE (NEGATIVE); OCCULT BLOOD,URINE MODERATE (NEGATIVE); PH,URINE 5.5 (5.0-8.0); PROTEIN,URINE NEGATIVE (NEGATIVE); UROBILINOGEN,URINE 0.2 EU/dL (<2.0)
[2023-08-21] MEDS ORDERED: Cefepime 2 GM in Sodium Chloride 0.9% 50 ML IV STA (13:15)
[2023-08-21] MEDS ORDERED: Sodium Chloride 0.9% 500 ML IV STA ×2 (13:17→14:51)
[2023-08-21 13:23] LABS: A/G RATIO 0.7 (0.9-1.6); ALBUMIN 3.1 g/dL (3.4-5.0); BILIRUBIN TOTAL 1.9 mg/dL (0.2-1.0); CALCIUM 10.1 mg/dL (8.5-10.1); CARBON DIOXIDE,CO2 23.2 mmol/L (21.0-32.0); CREATININE 2.2 mg/dL (0.6-1.0); EST CRCL DRUG DOSING (CG) 16.52 mL/min; POTASSIUM,K 4.4 mmol/L (3.5-5.1); PROTEIN TOTAL,TP 7.4 g/dL (6.4-8.2)
[2023-08-21 13:30] LABS: LYMPHOCYTES ABSOLUTE MAN 1.13 K/uL (1.00-4.80); LYMPHOCYTES PERCENT MAN 24 % (24-44); MONOCYTES ABSOLUTE MAN 0.38 K/uL (0.00-0.80); MONOCYTES PERCENT MAN 8 % (0-8); SEG NEUTROPHILS ABSOLUTE MAN 3.21 K/uL (1.80-7.70); SEG NEUTROPHILS PERCENT MAN 68 % (41-71)
[2023-08-21 13:32] LABS: ACETAMINOPHEN <2.0 ug/mL; ETHANOL BLOOD MEDICAL <3 mg/dL; SALICYLATE <0.2 mg/dL (0.0-20.0); TSH ULTRASENSITIVE 0.61 uIU/mL (0.36-3.74)
[2023-08-21 13:34] LABS: AMORPHOUS SEDIMENT,URINE MODERATE (NEGATIVE); BACTERIA,URINE 4+ (NEGATIVE); RBC,URINE 0-2 (0-2/HPF); WBC,URINE 15-25 (0-5/HPF)
[2023-08-21 13:35] LABS: RENAL EPITHELIAL CELLS,URINE MODERATE
[2023-08-21 13:43] LABS: CORONAVIRUS COVID-19 NAA NEGATIVE (NEGATIVE); INFLUENZA A NAA NEGATIVE (NEGATIVE); INFLUENZA B NAA NEGATIVE (NEGATIVE); RESPIRATORY SYNCYTIAL VIR NAA NEGATIVE (NEGATIVE)
[2023-08-21 14:45] LABS: LACTIC ACID 3.5 mmol/L (0.4-2.0)
[2023-08-21] MEDS ORDERED: Ondansetron 4 MG/2 ML SDV IVPUSH PRN (16:14)
[2023-08-21] MEDS ORDERED: 50% Dextrose in Water 50 ML Syringe IVPUSH PRN (16:20)
[2023-08-21] MEDS ORDERED: Glucagon,Human Recombinant 1 MG Vial IM PRN (16:20)
[2023-08-21] MEDS ORDERED: Sodium Chloride 0.9% 1,000 ML IV ONE (16:30)
[2023-08-21] MEDS: Insulin Aspart 100 Units/ML 3 ML Pen SUBCUT SCH (17:26)
[2023-08-21] MEDS: Lactulose Soln 10 GM/15 ML 15 ML UD Cup PO SCH ×2 (17:38→23:41)
[2023-08-21] MEDS: Pantoprazole 40 MG Tab.CR PO SCH (17:38)
[2023-08-21] MEDS: Carvedilol 6.25 MG Tab PO SCH (20:27)
[2023-08-21] MEDS: Aspirin 81 MG Tab.EC PO SCH (20:28)
[2023-08-21] MEDS: rOPINIRole 1 MG Tab PO SCH (20:28)
[2023-08-21] MEDS ORDERED: Non-Formulary Medication 1 Each (Bimatoprost 2.5 ML Bottle) EYEBOTH SCH (21:00)
[2023-08-22 01:49] LABS: LACTIC ACID 1.3 mmol/L (0.4-2.0)
[2023-08-22] MEDS: Lactulose Soln 10 GM/15 ML 15 ML UD Cup PO SCH ×4 (05:30→23:06)
[2023-08-22 06:00] LABS: BASOPHILS ABSOLUTE AUTO 0.02 K/uL (0.00-0.20); BASOPHILS PERCENT AUTO 0.8 % (0.0-1.0); HEMATOCRIT 28.8 % (37.0-47.0); HEMOGLOBIN 9.9 g/dL (12.0-16.0); LYMPHOCYTES ABSOLUTE AUTO 0.59 K/uL (1.00-4.80); LYMPHOCYTES PERCENT AUTO 24.9 % (24.0-44.0); MEAN CORPUSCULAR HEMOGLOBIN 33.9 pg (28.0-32.0); MEAN CORPUSCULAR HGB CONC 34.4 g/dL (32.0-36.0); MEAN CORPUSCULAR VOLUME 98.6 fL (83.0-99.0); MONOCYTES ABSOLUTE AUTO 0.26 K/uL (0.00-0.80); NEUTROPHILS PERCENT AUTO 63.3 % (41.0-71.0); PLATELET COUNT,PLT 64 K/uL (150-400); RED BLOOD CELL COUNT 2.92 M/uL (4.10-5.30); WHITE BLOOD CELL COUNT,WBC 2.37 K/uL (3.9-11.3)
[2023-08-22] MEDS: Levothyroxine 125 MCG Tab PO SCH (06:04)
[2023-08-22 06:24] LABS: A/G RATIO 0.7 (0.9-1.6); ALBUMIN 2.5 g/dL (3.4-5.0); BILIRUBIN TOTAL 1.6 mg/dL (0.2-1.0); CALCIUM 9.6 mg/dL (8.5-10.1); CARBON DIOXIDE,CO2 23.4 mmol/L (21.0-32.0); CREATININE 1.4 mg/dL (0.6-1.0); EST CRCL DRUG DOSING (CG) 25.95 mL/min; POTASSIUM,K 4.1 mmol/L (3.5-5.1); PROTEIN TOTAL,TP 6.1 g/dL (6.4-8.2)
[2023-08-22] MEDS: Insulin Aspart 100 Units/ML 3 ML Pen SUBCUT SCH ×3 (06:44→16:53)
[2023-08-22] MEDS: Pantoprazole 40 MG Tab.CR PO SCH ×2 (07:42→16:50)
[2023-08-22] MEDS: Carvedilol 6.25 MG Tab PO SCH ×2 (09:44→20:31)
[2023-08-22] MEDS: Cefepime 1 GM in Sodium Chloride 0.9% 50 ML IV SCH (12:21)
[2023-08-22] MEDS: rOPINIRole 1 MG Tab PO SCH (20:30)
[2023-08-22] MEDS: Aspirin 81 MG Tab.EC PO SCH (20:31)
[2023-08-23] MEDS: Lactulose Soln 10 GM/15 ML 15 ML UD Cup PO SCH ×2 (05:21→12:17)
[2023-08-23] MEDS: Levothyroxine 125 MCG Tab PO SCH (05:59)
[2023-08-23 06:25] LABS: BASOPHILS ABSOLUTE AUTO 0.02 K/uL (0.00-0.20); BASOPHILS PERCENT AUTO 0.7 % (0.0-1.0); HEMATOCRIT 27.4 % (37.0-47.0); HEMOGLOBIN 9.3 g/dL (12.0-16.0); IMMATURE GRAN ABSOLUTE AUTO 0.01 K/uL (0.00-0.05); IMMATURE GRAN PERCENT AUTO 0.4 % (0.0-0.4); LYMPHOCYTES ABSOLUTE AUTO 0.61 K/uL (1.00-4.80); LYMPHOCYTES PERCENT AUTO 22.3 % (24.0-44.0); MEAN CORPUSCULAR HEMOGLOBIN 34.1 pg (28.0-32.0); MEAN CORPUSCULAR HGB CONC 33.9 g/dL (32.0-36.0); MEAN CORPUSCULAR VOLUME 100.4 fL (83.0-99.0); MEAN PLATELET VOLUME 12.9 fL (9.4-12.3); MONOCYTES ABSOLUTE AUTO 0.27 K/uL (0.00-0.80); MONOCYTES PERCENT AUTO 9.9 % (0.0-8.0); NEUTROPHILS ABSOLUTE AUTO 1.82 K/uL (1.80-7.70); NEUTROPHILS PERCENT AUTO 66.7 % (41.0-71.0); PLATELET COUNT,PLT 61 K/uL (150-400); RED BLOOD CELL COUNT 2.73 M/uL (4.10-5.30); WHITE BLOOD CELL COUNT,WBC 2.73 K/uL (3.9-11.3)
[2023-08-23 06:46] LABS: A/G RATIO 0.7 (0.9-1.6); ALBUMIN 2.4 g/dL (3.4-5.0); BILIRUBIN TOTAL 1.1 mg/dL (0.2-1.0); CALCIUM 9.4 mg/dL (8.5-10.1); CREATININE 1.4 mg/dL (0.6-1.0); EST CRCL DRUG DOSING (CG) 25.95 mL/min; POTASSIUM,K 4.1 mmol/L (3.5-5.1)
[2023-08-23] MEDS: Insulin Aspart 100 Units/ML 3 ML Pen SUBCUT SCH ×2 (07:32→13:32)
[2023-08-23] MEDS: Pantoprazole 40 MG Tab.CR PO SCH (07:57)
[2023-08-23] MEDS: Carvedilol 6.25 MG Tab PO SCH (08:04)
[2023-08-23] MEDS: Cefepime 1 GM in Sodium Chloride 0.9% 50 ML IV SCH (12:20)
== END 2023-08-23 13:25 | disposition home or self-care (01) ==
LOC: MW.ED 12:19 → MW.MS 16:01
PROVIDERS: ADMIT Internal Medicine; ATTEND Internal Medicine
DX: K76.82 Hepatic encephalopathy (principal); K74.60 Unspecified cirrhosis of liver; G93.41 Metabolic encephalopathy; N30.01 Acute cystitis with hematuria; R53.1 Weakness; E86.0 Dehydration; N17.9 Acute kidney failure, unspecified; D69.6 Thrombocytopenia, unspecified; E72.20 Disorder of urea cycle metabolism, unspecified; E87.20 Acidosis, unspecified; Z20.822 Contact with and (suspected) exposure to COVID-19; E11.22 Type 2 diabetes mellitus with diabetic chronic kidney disease; I13.0 Hypertensive heart and chronic kidney disease with heart failure and stage 1 through stage 4 chronic kidney disease, or unspecified chronic kidney disease; I50.9 Heart failure, unspecified; N18.9 Chronic kidney disease, unspecified; E03.9 Hypothyroidism, unspecified; K21.9 Gastro-esophageal reflux disease without esophagitis; Z88.0 Allergy status to penicillin; Z79.82 Long term (current) use of aspirin; Z79.899 Other long term (current) drug therapy; Z79.890 Hormone replacement therapy; Z90.49 Acquired absence of other specified parts of digestive tract
CPT/HCPCS: 0241U; 36415; 70450; 71046; 80053; 80143; 80179; 80307; 81001; 82140; 82607; 82947; 83605; 83690; 83735; 84443; 84484; 85025; 87040; 87086; 93005; A9270; J0692; J1815; J2405; J3490; J7030; 93010; 96365; 96375; 96376; 99222; 99232; 99239; 99283; 99285-25; G0378

== ENCOUNTER 2023-09-21 15:15 | Emergency (ER) | payer MEDICARE, BC ==
[2023-09-21 15:55] LABS: BASOPHILS ABSOLUTE AUTO 0.01 K/uL (0.00-0.20); BASOPHILS PERCENT AUTO 0.3 % (0.0-1.0); HEMATOCRIT 31.1 % (37.0-47.0); HEMOGLOBIN 10.5 g/dL (12.0-16.0); LYMPHOCYTES ABSOLUTE AUTO 0.62 K/uL (1.00-4.80); LYMPHOCYTES PERCENT AUTO 17.8 % (24.0-44.0); MEAN CORPUSCULAR HEMOGLOBIN 33.9 pg (28.0-32.0); MEAN CORPUSCULAR HGB CONC 33.8 g/dL (32.0-36.0); MEAN CORPUSCULAR VOLUME 100.3 fL (83.0-99.0); MEAN PLATELET VOLUME 11.5 fL (9.4-12.3); MONOCYTES ABSOLUTE AUTO 0.45 K/uL (0.00-0.80); MONOCYTES PERCENT AUTO 12.9 % (0.0-8.0); NEUTROPHILS ABSOLUTE AUTO 2.41 K/uL (1.80-7.70); PLATELET COUNT,PLT 76 K/uL (150-400); WHITE BLOOD CELL COUNT,WBC 3.49 K/uL (3.9-11.3)
[2023-09-21 16:28] LABS: A/G RATIO 0.8 (0.9-1.6); ALBUMIN 2.9 g/dL (3.4-5.0); BILIRUBIN TOTAL 1.4 mg/dL (0.2-1.0); CALCIUM 9.6 mg/dL (8.5-10.1); CARBON DIOXIDE,CO2 25.7 mmol/L (21.0-32.0); CREATININE 2.1 mg/dL (0.6-1.0); EST CRCL DRUG DOSING (CG) 17.3 mL/min; POTASSIUM,K 4.5 mmol/L (3.5-5.1); PROTEIN TOTAL,TP 6.6 g/dL (6.4-8.2)
== END 2023-09-21 17:32 | disposition home or self-care (01) ==
LOC: MW.ED 15:15
DX: I95.9 Hypotension, unspecified (principal); I11.0 Hypertensive heart disease with heart failure; I50.9 Heart failure, unspecified; E78.00 Pure hypercholesterolemia, unspecified; E11.9 Type 2 diabetes mellitus without complications; E03.9 Hypothyroidism, unspecified; Z90.49 Acquired absence of other specified parts of digestive tract; Z79.82 Long term (current) use of aspirin; Z79.899 Other long term (current) drug therapy; Z88.0 Allergy status to penicillin
CPT/HCPCS: 36415; 80053; 82140; 85025; 99281; 99284

== ENCOUNTER 2023-10-28 07:52 | Inpatient (IN) | payer MEDICARE, BC ==
[2023-10-28 08:12] LABS: BASOPHILS ABSOLUTE AUTO 0.01 K/uL (0.00-0.20); BASOPHILS PERCENT AUTO 0.3 % (0.0-1.0); HEMATOCRIT 30.7 % (37.0-47.0); IMMATURE GRAN ABSOLUTE AUTO 0.01 K/uL (0.00-0.05); IMMATURE GRAN PERCENT AUTO 0.3 % (0.0-0.4); LYMPHOCYTES ABSOLUTE AUTO 0.75 K/uL (1.00-4.80); MEAN CORPUSCULAR HEMOGLOBIN 32.9 pg (28.0-32.0); MEAN CORPUSCULAR HGB CONC 32.6 g/dL (32.0-36.0); MEAN PLATELET VOLUME 12.7 fL (9.4-12.3); MONOCYTES ABSOLUTE AUTO 0.26 K/uL (0.00-0.80); MONOCYTES PERCENT AUTO 8.3 % (0.0-8.0); NEUTROPHILS PERCENT AUTO 67.1 % (41.0-71.0); PLATELET COUNT,PLT 73 K/uL (150-400); RED BLOOD CELL COUNT 3.04 M/uL (4.10-5.30); WHITE BLOOD CELL COUNT,WBC 3.13 K/uL (3.9-11.3)
[2023-10-28 08:22] LABS: INR 1.14 (0.86-1.11); PTT,PARTIAL THROMBOPLSTIN TIME 26.7 SEC (23.9-30.7)
[2023-10-28] MEDS ORDERED: Lactulose Soln 10 GM/15 ML 15 ML UD Cup PO ONE ×2 (08:33→18:00)
[2023-10-28 08:35] LABS: LACTIC ACID 1.7 mmol/L (0.4-2.0)
[2023-10-28 08:39] LABS: A/G RATIO 0.7 (0.9-1.6); ALANINE AMINOTRANSFERASE,ALT 40 IU/L (14-63); ALBUMIN 2.4 g/dL (3.4-5.0); ALKALINE PHOSPHATASE 223 U/L (46-116); ASPARTATE AMNIOTRANSFERASE,AST 70 IU/L (15-37); BILIRUBIN TOTAL 1.1 mg/dL (0.2-1.0); BLOOD UREA NITROGEN,BUN 25 mg/dL (7.0-18.0); CALCIUM 9.6 mg/dL (8.5-10.1); CARBON DIOXIDE,CO2 27.8 mmol/L (21.0-32.0); CHLORIDE,CL 109 mmol/L (98-107); CREATININE 2.3 mg/dL (0.6-1.0); EST CRCL DRUG DOSING (CG) 16.44 mL/min; ETHANOL BLOOD MEDICAL <3 mg/dL; GLUCOSE RANDOM 131 mg/dL (74-106); LIPASE 58 U/L (16-77); MAGNESIUM 1.9 mg/dL (1.8-2.4); POTASSIUM,K 4.7 mmol/L (3.5-5.1); SODIUM,NA 145 mmol/L (136-145); TSH ULTRASENSITIVE 3.59 uIU/mL (0.36-3.74)
[2023-10-28 08:40] LABS: ESTIMATED GFR 20 mL/min (>60)
[2023-10-28 08:47] LABS: BILIRUBIN,URINE NEGATIVE (NEGATIVE); COLOR,URINE YELLOW; GLUCOSE,URINE NEGATIVE (NEGATIVE); KETONES,URINE NEGATIVE (NEGATIVE); LEUKOCYTE ESTERASE,URINE NEGATIVE (NEGATIVE); NITRITE,URINE POSITIVE (NEGATIVE); OCCULT BLOOD,URINE MODERATE (NEGATIVE); PROTEIN,URINE NEGATIVE (NEGATIVE); UROBILINOGEN,URINE 0.2 EU/dL (<2.0)
[2023-10-28 08:54] LABS: APPEARANCE,URINE HAZY
[2023-10-28] MEDS ORDERED: Furosemide 20 MG/2 ML VIAL IVPUSH ONE (08:54)
[2023-10-28 08:59] LABS: AMPHETAMINES SCREEN, URINE NEGATIVE (CUTOFF=500); BACTERIA,URINE 4+ (NEGATIVE); BARBITURATE SCREEN,URINE NEGATIVE (CUTOFF=200); BENZODIAZEPINES SCREEN,URINE NEGATIVE (CUTOFF=150); BUPRENORPHINE SCREEN,URINE NEGATIVE (CUTOFF=10); EPITHELIAL CELLS,URINE FEW (NONE-FEW); METHADONE SCREEN, URINE NEGATIVE (CUTOFF=200); METHAMPHETAMINES SCREEN, URINE NEGATIVE (CUTOFF=500); OXYCODONE SCREEN,URINE NEGATIVE (CUT0FF=100); PCP SCREEN,URINE NEGATIVE (CUTOFF=25); THC SCREEN,URINE 20 NG/ML NEGATIVE (CUTOFF=50); WBC,URINE 0-3 (0-5/HPF)
[2023-10-28] MEDS ORDERED: cefTRIAXone 1 GM in Sodium Chloride 0.9% 50 ML IV ONE (09:00)
[2023-10-28 09:31] LABS: CORONAVIRUS COVID-19 NAA NEGATIVE (NEGATIVE); INFLUENZA A NAA NEGATIVE (NEGATIVE); INFLUENZA B NAA NEGATIVE (NEGATIVE)
[2023-10-28] MEDS ORDERED: Ondansetron 4 MG/2 ML SDV IVPUSH PRN (11:12)
[2023-10-28] MEDS ORDERED: Acetaminophen 325 MG Tab PO PRN (11:12)
[2023-10-28] MEDS ORDERED: Sodium Chloride 0.9% 500 ML IV SCH (11:15)
[2023-10-28] MEDS ORDERED: Sodium Chloride 0.9% 1,000 ML IV SCH ×2 (11:15→13:30)
[2023-10-28] MEDS: Lactulose Soln 10 GM/15 ML 15 ML UD Cup PO SCH ×3 (12:14→23:10)
[2023-10-28] MEDS: Pantoprazole 40 MG in Sodium Chloride 0.9% 10 ML IVPUSH SCH (12:14)
[2023-10-28] MEDS ORDERED: Glucagon,Human Recombinant 1 MG Vial IM PRN (13:36)
[2023-10-28] MEDS ORDERED: 50% Dextrose in Water 50 ML Syringe IVPUSH PRN (13:36)
[2023-10-28] MEDS ORDERED: Lactulose Soln 10 GM/15 ML 15 ML UD Cup PO SCH (14:00)
[2023-10-28] MEDS: Empagliflozin 10 MG Tab PO SCH (15:04)
[2023-10-28] MEDS: Insulin Aspart 100 Units/ML 3 ML Pen SUBCUT SCH (16:48)
[2023-10-28] MEDS: rOPINIRole 1 MG Tab PO SCH (20:41)
[2023-10-28] MEDS: Latanoprost 0.005% Ophth Soln 2.5 ML Bottle EYEBOTH SCH (20:43)
[2023-10-29] MEDS: Lactulose Soln 10 GM/15 ML 15 ML UD Cup PO SCH ×3 (06:00→21:01)
[2023-10-29 06:02] LABS: BASOPHILS ABSOLUTE AUTO 0.03 K/uL (0.00-0.20); BASOPHILS PERCENT AUTO 1.1 % (0.0-1.0); EOSINOPHILS ABSOLUTE AUTO 0.01 K/uL (0.00-0.45); EOSINOPHILS PERCENT AUTO 0.4 % (0.0-6.0); HEMATOCRIT 26.9 % (37.0-47.0); HEMOGLOBIN 8.9 g/dL (12.0-16.0); IMMATURE GRAN ABSOLUTE AUTO 0.01 K/uL (0.00-0.05); IMMATURE GRAN PERCENT AUTO 0.4 % (0.0-0.4); LYMPHOCYTES ABSOLUTE AUTO 0.51 K/uL (1.00-4.80); MEAN CORPUSCULAR HEMOGLOBIN 33.6 pg (28.0-32.0); MEAN CORPUSCULAR HGB CONC 33.1 g/dL (32.0-36.0); MEAN CORPUSCULAR VOLUME 101.5 fL (83.0-99.0); MEAN PLATELET VOLUME 11.9 fL (9.4-12.3); MONOCYTES ABSOLUTE AUTO 0.22 K/uL (0.00-0.80); MONOCYTES PERCENT AUTO 8.2 % (0.0-8.0); NEUTROPHILS ABSOLUTE AUTO 1.91 K/uL (1.80-7.70); NEUTROPHILS PERCENT AUTO 70.9 % (41.0-71.0); PLATELET COUNT,PLT 65 K/uL (150-400); RED BLOOD CELL COUNT 2.65 M/uL (4.10-5.30); WHITE BLOOD CELL COUNT,WBC 2.69 K/uL (3.9-11.3)
[2023-10-29 06:33] LABS: A/G RATIO 0.6 (0.9-1.6); BILIRUBIN TOTAL 1.2 mg/dL (0.2-1.0); CALCIUM 9.2 mg/dL (8.5-10.1); CARBON DIOXIDE,CO2 25.7 mmol/L (21.0-32.0); EST CRCL DRUG DOSING (CG) 18.9 mL/min; POTASSIUM,K 3.7 mmol/L (3.5-5.1); PROTEIN TOTAL,TP 5.2 g/dL (6.4-8.2)
[2023-10-29] MEDS: Insulin Aspart 100 Units/ML 3 ML Pen SUBCUT SCH ×3 (06:39→16:51)
[2023-10-29] MEDS: Levothyroxine 125 MCG Tab PO SCH (06:39)
[2023-10-29] MEDS ORDERED: Albumin 25% 12.5 GM/50 ML Bag IV ONE (09:18)
[2023-10-29] MEDS ORDERED: Albumin 25% 12.5 GM in Premix Bag 1 BAG IV ONE ×2 (09:30→11:30)
[2023-10-29] MEDS: cefTRIAXone 1 GM in Sodium Chloride 0.9% 50 ML IV SCH (10:18)
[2023-10-29] MEDS: Empagliflozin 10 MG Tab PO SCH (11:42)
[2023-10-29] MEDS: Pantoprazole 40 MG in Sodium Chloride 0.9% 10 ML IVPUSH SCH (12:06)
[2023-10-29] MEDS: Sodium Chloride 0.9% 1,000 ML IV SCH (16:46)
[2023-10-29] MEDS: rOPINIRole 1 MG Tab PO SCH (20:53)
[2023-10-29] MEDS: Latanoprost 0.005% Ophth Soln 2.5 ML Bottle EYEBOTH SCH (20:58)
[2023-10-30] MEDS: Sodium Chloride 0.9% 1,000 ML IV SCH (06:12)
[2023-10-30] MEDS: Lactulose Soln 10 GM/15 ML 15 ML UD Cup PO SCH (06:16)
[2023-10-30] MEDS: Levothyroxine 125 MCG Tab PO SCH ×3 (06:28→07:34)
[2023-10-30 06:48] LABS: BASOPHILS ABSOLUTE AUTO 0.03 K/uL (0.00-0.20); HEMATOCRIT 25.6 % (37.0-47.0); HEMOGLOBIN 8.5 g/dL (12.0-16.0); IMMATURE GRAN ABSOLUTE AUTO 0.01 K/uL (0.00-0.05); IMMATURE GRAN PERCENT AUTO 0.3 % (0.0-0.4); LYMPHOCYTES ABSOLUTE AUTO 0.69 K/uL (1.00-4.80); LYMPHOCYTES PERCENT AUTO 23.9 % (24.0-44.0); MEAN CORPUSCULAR HEMOGLOBIN 33.6 pg (28.0-32.0); MEAN CORPUSCULAR HGB CONC 33.2 g/dL (32.0-36.0); MEAN CORPUSCULAR VOLUME 101.2 fL (83.0-99.0); MEAN PLATELET VOLUME 12.1 fL (9.4-12.3); MONOCYTES ABSOLUTE AUTO 0.28 K/uL (0.00-0.80); MONOCYTES PERCENT AUTO 9.7 % (0.0-8.0); NEUTROPHILS ABSOLUTE AUTO 1.88 K/uL (1.80-7.70); NEUTROPHILS PERCENT AUTO 65.1 % (41.0-71.0); PLATELET COUNT,PLT 57 K/uL (150-400); RED BLOOD CELL COUNT 2.53 M/uL (4.10-5.30); WHITE BLOOD CELL COUNT,WBC 2.89 K/uL (3.9-11.3)
[2023-10-30 07:09] LABS: A/G RATIO 0.7 (0.9-1.6); BILIRUBIN TOTAL 1.1 mg/dL (0.2-1.0); CALCIUM 8.8 mg/dL (8.5-10.1); CARBON DIOXIDE,CO2 25.3 mmol/L (21.0-32.0); CREATININE 1.4 mg/dL (0.6-1.0); POTASSIUM,K 3.7 mmol/L (3.5-5.1); PROTEIN TOTAL,TP 4.9 g/dL (6.4-8.2)
[2023-10-30] MEDS: Insulin Aspart 100 Units/ML 3 ML Pen SUBCUT SCH ×2 (07:15→11:30)
[2023-10-30] MEDS: cefTRIAXone 1 GM in Sodium Chloride 0.9% 50 ML IV SCH (09:09)
[2023-10-30] MEDS: Empagliflozin 10 MG Tab PO SCH (09:09)
[2023-10-30] MEDS: Pantoprazole 40 MG in Sodium Chloride 0.9% 10 ML IVPUSH SCH (11:11)
== END 2023-10-30 12:45 | disposition home health service (06) | DRG 442 ==
LOC: MW.ED 07:52 → MW.MS 10:26
PROVIDERS: ADMIT Family Medicine; ATTEND Family Medicine
DX: K76.82 Hepatic encephalopathy (principal); I11.0 Hypertensive heart disease with heart failure; E72.20 Disorder of urea cycle metabolism, unspecified; I13.0 Hypertensive heart and chronic kidney disease with heart failure and stage 1 through stage 4 chronic kidney disease, or unspecified chronic kidney disease; N30.01 Acute cystitis with hematuria; E03.9 Hypothyroidism, unspecified; N17.9 Acute kidney failure, unspecified; K21.9 Gastro-esophageal reflux disease without esophagitis; I50.9 Heart failure, unspecified; Z66 Do not resuscitate; Z20.822 Contact with and (suspected) exposure to COVID-19; E78.00 Pure hypercholesterolemia, unspecified; E11.9 Type 2 diabetes mellitus without complications; N18.9 Chronic kidney disease, unspecified; E05.90 Thyrotoxicosis, unspecified without thyrotoxic crisis or storm; K74.60 Unspecified cirrhosis of liver; E11.22 Type 2 diabetes mellitus with diabetic chronic kidney disease; D69.6 Thrombocytopenia, unspecified; Z88.0 Allergy status to penicillin; Z79.82 Long term (current) use of aspirin; Z79.899 Other long term (current) drug therapy; Z98.84 Bariatric surgery status; Z90.49 Acquired absence of other specified parts of digestive tract; Z98.890 Other specified postprocedural states; Z11.52 Encounter for screening for COVID-19
CPT/HCPCS: 0240U; 36415; 51702; 71045; 80053; 80305; 80307; 81001; 82140; 82947; 83605; 83690; 83735; 83880; 84443; 84484; 85025; 85610; 85730; 87086; 93005; 96365; 96375; 99285; 87088; 87186; 93010; A9270-GY; C9113; J0696; J1815-GY; J1940; J2405; J3490; J7030; J7040; P9047

== ENCOUNTER 2024-01-06 17:58 | Emergency (ER) | payer MEDICARE, BC ==
[2024-01-06 19:09] LABS: BASOPHILS ABSOLUTE AUTO 0.01 K/uL (0.00-0.20); BASOPHILS PERCENT AUTO 0.3 % (0.0-1.0); HEMATOCRIT 27.7 % (37.0-47.0); HEMOGLOBIN 9.2 g/dL (12.0-16.0); IMMATURE GRAN ABSOLUTE AUTO 0.01 K/uL (0.00-0.05); IMMATURE GRAN PERCENT AUTO 0.3 % (0.0-0.4); LYMPHOCYTES ABSOLUTE AUTO 0.59 K/uL (1.00-4.80); LYMPHOCYTES PERCENT AUTO 16.3 % (24.0-44.0); MEAN CORPUSCULAR HEMOGLOBIN 33.6 pg (28.0-32.0); MEAN CORPUSCULAR HGB CONC 33.2 g/dL (32.0-36.0); MEAN CORPUSCULAR VOLUME 101.1 fL (83.0-99.0); MEAN PLATELET VOLUME 12.5 fL (9.4-12.3); MONOCYTES ABSOLUTE AUTO 0.39 K/uL (0.00-0.80); MONOCYTES PERCENT AUTO 10.7 % (0.0-8.0); NEUTROPHILS ABSOLUTE AUTO 2.63 K/uL (1.80-7.70); NEUTROPHILS PERCENT AUTO 72.4 % (41.0-71.0); RED BLOOD CELL COUNT 2.74 M/uL (4.10-5.30); WHITE BLOOD CELL COUNT,WBC 3.63 K/uL (3.9-11.3)
[2024-01-06 19:24] LABS: INR 1.13 (0.86-1.11)
[2024-01-06 19:31] LABS: BASE EXCESS VENOUS 0.4 (-2.0-3.0); BICARBONATE,VENOUS 26 mEq/L (23-28); PCO2 VENOUS 44 mmHG (41-51); PH,VENOUS 7.38 (7.31-7.41)
[2024-01-06 19:32] LABS: A/G RATIO 0.7 (0.9-1.6); ALBUMIN 2.4 g/dL (3.4-5.0); BILIRUBIN TOTAL 1.2 mg/dL (0.2-1.0); CALCIUM 8.8 mg/dL (8.5-10.1); CARBON DIOXIDE,CO2 24.2 mmol/L (21.0-32.0); CREATININE 2.2 mg/dL (0.6-1.0); EST CRCL DRUG DOSING (CG) 16.21 mL/min; MAGNESIUM 1.9 mg/dL (1.8-2.4); POTASSIUM,K 4.5 mmol/L (3.5-5.1)
[2024-01-06 19:46] LABS: PLATELET COUNT,PLT 74
[2024-01-06 19:48] LABS: PO2 VENOUS < 30 mmHG
[2024-01-06 20:11] LABS: LACTIC ACID 2.2 mmol/L (0.4-2.0)
[2024-01-06] MEDS: Lactated Ringers 500 ML IV SCH (20:47)
[2024-01-06 21:59] LABS: APPEARANCE,URINE CLEAR; BILIRUBIN,URINE NEGATIVE (NEGATIVE); COLOR,URINE YELLOW; GLUCOSE,URINE NEGATIVE (NEGATIVE); KETONES,URINE NEGATIVE (NEGATIVE); LEUKOCYTE ESTERASE,URINE SMALL (NEGATIVE); NITRITE,URINE NEGATIVE (NEGATIVE); OCCULT BLOOD,URINE NEGATIVE (NEGATIVE); PH,URINE 5.5 (5.0-8.0); PROTEIN,URINE NEGATIVE (NEGATIVE); UROBILINOGEN,URINE 0.2 EU/dL (<2.0)
[2024-01-06 22:15] LABS: RBC,URINE 0-1 (0-2/HPF)
[2024-01-06 22:16] LABS: BACTERIA,URINE RARE (NEGATIVE); EPITHELIAL CELLS,URINE RARE (NONE-FEW)
== END 2024-01-06 22:55 | disposition home or self-care (01) ==
LOC: MW.ED 17:58
DX: I95.9 Hypotension, unspecified (principal); K74.60 Unspecified cirrhosis of liver; E78.00 Pure hypercholesterolemia, unspecified; I11.0 Hypertensive heart disease with heart failure; I50.9 Heart failure, unspecified; E11.9 Type 2 diabetes mellitus without complications; E03.9 Hypothyroidism, unspecified; Z90.49 Acquired absence of other specified parts of digestive tract; Z79.899 Other long term (current) drug therapy; Z88.0 Allergy status to penicillin; Z79.82 Long term (current) use of aspirin; Z75.8 Other problems related to medical facilities and other health care
CPT/HCPCS: 36415; 71045; 80053; 81001; 82140; 82803; 83605; 83690; 83735; 83880; 84484; 85025; 85610; 87040; 87086; 93005; 96360; 99285; J7120; 93010; 99283

== ENCOUNTER 2024-01-22 12:22 | Emergency (ER) | payer MEDICARE, BC ==
[2024-01-22 13:18] LABS: BASOPHILS ABSOLUTE AUTO 0.02 K/uL (0.00-0.20); BASOPHILS PERCENT AUTO 0.7 % (0.0-1.0); HEMATOCRIT 26.7 % (37.0-47.0); HEMOGLOBIN 8.9 g/dL (12.0-16.0); IMMATURE GRAN ABSOLUTE AUTO 0.01 K/uL (0.00-0.05); IMMATURE GRAN PERCENT AUTO 0.3 % (0.0-0.4); LYMPHOCYTES ABSOLUTE AUTO 0.52 K/uL (1.00-4.80); LYMPHOCYTES PERCENT AUTO 18.1 % (24.0-44.0); MEAN CORPUSCULAR HGB CONC 33.3 g/dL (32.0-36.0); MEAN CORPUSCULAR VOLUME 101.9 fL (83.0-99.0); MEAN PLATELET VOLUME 12.1 fL (9.4-12.3); MONOCYTES ABSOLUTE AUTO 0.26 K/uL (0.00-0.80); NEUTROPHILS ABSOLUTE AUTO 2.07 K/uL (1.80-7.70); NEUTROPHILS PERCENT AUTO 71.9 % (41.0-71.0); PLATELET COUNT,PLT 64 K/uL (150-400); RED BLOOD CELL COUNT 2.62 M/uL (4.10-5.30); WHITE BLOOD CELL COUNT,WBC 2.88 K/uL (3.9-11.3)
[2024-01-22] MEDS: Sodium Chloride 0.9% 10 ML Syringe FLUSH PRN (13:20)
[2024-01-22] MEDS: Sodium Chloride 0.9% 2.5 ML Syringe FLUSH PRN (13:20)
[2024-01-22] MEDS: Furosemide 40 MG/4 ML VIAL IVPUSH ONE (13:20)
[2024-01-22 13:39] LABS: A/G RATIO 0.7 (0.9-1.6); ALBUMIN 2.3 g/dL (3.4-5.0); CALCIUM 9.2 mg/dL (8.5-10.1); CARBON DIOXIDE,CO2 26.6 mmol/L (21.0-32.0); CREATININE 2.3 mg/dL (0.6-1.0); EST CRCL DRUG DOSING (CG) 15.51 mL/min; POTASSIUM,K 4.7 mmol/L (3.5-5.1); PROTEIN TOTAL,TP 5.7 g/dL (6.4-8.2)
== END 2024-01-22 15:49 | disposition home or self-care (01) ==
LOC: MW.ED 12:22
DX: R60.0 Localized edema (principal); I13.0 Hypertensive heart and chronic kidney disease with heart failure and stage 1 through stage 4 chronic kidney disease, or unspecified chronic kidney disease; I50.9 Heart failure, unspecified; E11.22 Type 2 diabetes mellitus with diabetic chronic kidney disease; N18.9 Chronic kidney disease, unspecified; K74.60 Unspecified cirrhosis of liver; E03.9 Hypothyroidism, unspecified; K21.9 Gastro-esophageal reflux disease without esophagitis; E88.09 Other disorders of plasma-protein metabolism, not elsewhere classified; Z79.82 Long term (current) use of aspirin; Z79.899 Other long term (current) drug therapy; Z88.0 Allergy status to penicillin; Z75.8 Other problems related to medical facilities and other health care
CPT/HCPCS: 36415; 71045; 80053; 83880; 85025; 93005; 96374; 99284; J1940; J3490; 93010; 99285

== ENCOUNTER 2024-03-24 13:31 | Emergency (ER) | payer MEDICARE, BC ==
[2024-03-24 15:09] LABS: BASOPHILS ABSOLUTE AUTO 0.02 K/uL (0.00-0.20); BASOPHILS PERCENT AUTO 0.5 % (0.0-1.0); HEMATOCRIT 25.7 % (37.0-47.0); HEMOGLOBIN 8.5 g/dL (12.0-16.0); IMMATURE GRAN ABSOLUTE AUTO 0.02 K/uL (0.00-0.05); IMMATURE GRAN PERCENT AUTO 0.5 % (0.0-0.4); LYMPHOCYTES ABSOLUTE AUTO 0.73 K/uL (1.00-4.80); LYMPHOCYTES PERCENT AUTO 16.7 % (24.0-44.0); MEAN CORPUSCULAR HEMOGLOBIN 32.8 pg (28.0-32.0); MEAN CORPUSCULAR HGB CONC 33.1 g/dL (32.0-36.0); MEAN CORPUSCULAR VOLUME 99.2 fL (83.0-99.0); MEAN PLATELET VOLUME 11.5 fL (9.4-12.3); MONOCYTES ABSOLUTE AUTO 0.37 K/uL (0.00-0.80); MONOCYTES PERCENT AUTO 8.5 % (0.0-8.0); NEUTROPHILS ABSOLUTE AUTO 3.22 K/uL (1.80-7.70); NEUTROPHILS PERCENT AUTO 73.8 % (41.0-71.0); PLATELET COUNT,PLT 71 K/uL (150-400); RED BLOOD CELL COUNT 2.59 M/uL (4.10-5.30); WHITE BLOOD CELL COUNT,WBC 4.36 K/uL (3.9-11.3)
[2024-03-24] MEDS: Sodium Chloride 0.9% 10 ML Syringe FLUSH PRN (15:23)
[2024-03-24] MEDS: Sodium Chloride 0.9% 2.5 ML Syringe FLUSH PRN (15:24)
[2024-03-24 15:39] LABS: A/G RATIO 0.5 (0.9-1.6); ALBUMIN 1.8 g/dL (3.4-5.0); BILIRUBIN TOTAL 1.2 mg/dL (0.2-1.0); CALCIUM 8.1 mg/dL (8.5-10.1); CARBON DIOXIDE,CO2 27.6 mmol/L (21.0-32.0); CREATININE 2.7 mg/dL (0.6-1.0); EST CRCL DRUG DOSING (CG) 13.21 mL/min; MAGNESIUM 2.1 mg/dL (1.8-2.4); PHOSPHORUS 3.6 mg/dL (2.6-4.7); POTASSIUM,K 3.1 mmol/L (3.5-5.1); PROTEIN TOTAL,TP 5.3 g/dL (6.4-8.2)
[2024-03-24 16:40] LABS: APPEARANCE,URINE CLEAR; BILIRUBIN,URINE NEGATIVE (NEGATIVE); COLOR,URINE YELLOW; GLUCOSE,URINE NEGATIVE (NEGATIVE); KETONES,URINE NEGATIVE (NEGATIVE); LEUKOCYTE ESTERASE,URINE SMALL (NEGATIVE); NITRITE,URINE NEGATIVE (NEGATIVE); OCCULT BLOOD,URINE TRACE-INTACT (NEGATIVE); PROTEIN,URINE NEGATIVE (NEGATIVE); UROBILINOGEN,URINE 0.2 EU/dL (<2.0)
[2024-03-24 17:07] LABS: BACTERIA,URINE 1+ (NEGATIVE); EPITHELIAL CELLS,URINE RARE (NONE-FEW); RBC,URINE 0-1 (0-2/HPF); WBC,URINE 0-2 (0-5/HPF)
== END 2024-03-24 19:07 | disposition home or self-care (01) ==
LOC: MW.ED 13:31
DX: I13.0 Hypertensive heart and chronic kidney disease with heart failure and stage 1 through stage 4 chronic kidney disease, or unspecified chronic kidney disease (principal); I50.9 Heart failure, unspecified; N18.9 Chronic kidney disease, unspecified; D63.1 Anemia in chronic kidney disease; K74.60 Unspecified cirrhosis of liver; E11.9 Type 2 diabetes mellitus without complications; E03.9 Hypothyroidism, unspecified; Z88.0 Allergy status to penicillin; Z79.82 Long term (current) use of aspirin; Z79.899 Other long term (current) drug therapy; Z90.49 Acquired absence of other specified parts of digestive tract
CPT/HCPCS: 36415; 71045; 80053; 81001; 83690; 83735; 83880; 84100; 84484; 85025; 93005; 99285; J3490; U0002; 93010; 99284